=== PATIENT | female | born 1955 | race Caucasian/White ===

== ENCOUNTER 2023-02-01 09:50 | Outpatient (OUT) | payer MEDICARE, MEDICAID, SELFPAY ==
[2023-02-01 10:41] LABS: Creatinine Urine Random 58.68 mg/dL (20.00-300.00); Microalbum Creatinine Ratio Ur 22.1 mg/g (0.0-29.9); Microalbumin Urine Random <1.3 mg/dL (<=30.0)
[2023-02-01 10:43] LABS: Estimated Average Glucose 148 mg/dL; Glycohemoglobin A1C 6.8 % (4.5-6.2)
[2023-02-01 10:45] LABS: Alanine Aminotransferase 43 U/L (14-59); Alkaline Phosphatase 99 U/L (46-116); Anion Gap 13.4; Aspartate Amino Transferase 21 U/L (15-37); BUN Creatinine Ratio 8.9; Bilirubin Total 0.6 mg/dL (0.2-1.0); Calcium 8.9 mg/dL (8.5-10.1); Carbon Dioxide 29.5 mmol/L (21.0-32.0); Chloride 95 mmol/L (98-107); Chol HDL Ratio 3.3; Cholesterol 195 mg/dL (<=200); Estimated GFR (African America >60 (>=60); Estimated GFR (Non-African Ame >60 (>=60); Globulin 3.9 g/dL; Glucose 126 mg/dL (74-106); HDL Cholesterol 59 mg/dL (40-60); LDL Cholesterol Calculated 109.4 mg/dL; Potassium 3.9 mmol/L (3.5-5.1); Sodium 134 mmol/L (136-145); Total Protein 7.9 g/dL (6.4-8.2); Triglycerides 133 mg/dL (<=150); VLDL CHOLESTEROL 26.6 mg/dL
[2023-02-01 10:51] LABS: Basophils Absolute Auto 0.1 10^3/uL (0.0-0.1); Basophils Percent Auto 0.7 % (0.2-2.0); Eosinophils Absolute Auto 0.1 10^3/uL (0.0-0.7); Eosinophils Percent Auto 1.5 % (0.9-7.0); Hematocrit 44.7 % (36.0-48.0); Hemoglobin 15.4 g/dL (12.0-16.0); Immature Granulocytes Abs Auto 0.02 10^3/uL (0.00-0.03); Immature Granulocytes Pct Auto 0.3 % (0.0-0.5); Lymphocytes Absolute Auto 1.4 10^3/uL (1.2-3.8); Lymphocytes Percent Auto 19.6 % (20.5-60.0); Mean Corpuscular HGB Conc 34.5 g/dL (29.9-35.2); Mean Corpuscular Hemoglobin 31.9 pg (26.7-34.0); Mean Corpuscular Volume 92.5 fL (81.0-99.0); Monocytes Absolute Auto 0.8 10^3/uL (0.3-0.8); Monocytes Percent Auto 11.2 % (1.7-12.0); Neutrophils Absolute Auto 4.8 10^3/uL (1.4-6.5); Neutrophils Percent Auto 66.7 % (43.0-75.0); Platelet Count 385 10^3/uL (150-450); Red Blood Count 4.83 10^6/uL (4.20-5.40); Red Cell Distribution Width 12.1 % (11.0-15.0); White Blood Count 7.3 10^3/uL (4.0-11.0)
== END 2023-02-01 09:51 | disposition home or self-care (01) ==
LOC: LAB 09:54
PROVIDERS: PCP Nurse Practitioner Family; Visit Provider Nurse Practitioner Family
DX: E11.610 Type 2 diabetes mellitus with diabetic neuropathic arthropathy (principal); I10 Essential (primary) hypertension
CPT/HCPCS: 36415; 80053; 80061; 82043; 82570; 83036; 85025

== ENCOUNTER 2023-03-26 13:25 | Emergency (ER) | payer MEDICARE, MEDICAID, SELFPAY ==
[2023-03-26 13:33] VITALS: BP 148/89; PULSE 102; RESP 20; TEMP 36.7; O2SAT 98; BMI 29.0
--- NOTE | 2023-03-26 13:40 | XR_ITS ---
The [address] [address] Patient Name: IDALMIS HATHAWAY MRN: [id number] date: 1955 Sex: M Assigned Patient Location: ER Current Patient Location: ER Accession/Order Number: [id number] Exam Date: 03/26/2023 14:15 Report Date: 03/26/2023 14:45 At the request of: SHYANN HU Procedure: XR hip RT 2V w/ pelvis EXAM: XR hip RT 2V w/ pelvis HISTORY: right hip pain patient fell 2 or 3 days ago COMPARISON: None TECHNIQUE: Two-view right hip and AP view pelvis study was performed with 3 images obtained in total. FINDINGS: No definite acute fracture or dislocation. Mild to moderate degenerative changes about the right hip joint with mild changes about the left hip joint. Mild bilateral spurring of the iliac regions. Moderate degenerative changes about the visualized lumbar spine. Soft tissues are grossly within normal limits. XR/XR hip RT 2V w/ pelvis IMPRESSION: Right hip and AP view pelvis study demonstrates degenerative changes as described. No definite acute fracture or dislocation. Follow-up as needed. Electronically authenticated by: MARIPOSA YATES Date: 03/26/2023 14:45
--- NOTE | 2023-03-26 14:00 | ED.LOWEXI1 ---
HPI - Extremity Injury (Lower) General Chief Complaint: Extremity Injury, Lower Stated Complaint: HIP PAIN Time Seen by Provider: 03/26/23 13:40 Source: patient Mode of arrival: Wheelchair Limitations: no limitations History of Present Illness HPI Narrative: patient is a very pleasant 67-year-old male who drove himself to the emergency department for the evaluation of right posterior hip and leg pain that began two days ago. He states he has a history of issues with the right hip. He denies any falls, injuries. He has not had any leg swelling, color change to the lower leg. He has chronic neuropathy to the feet that is not worse or different. He denies any urinary or stool incontinence. No medications taken prior to arrival. he states the pain is concentrated in the right buttock/posterior hip and occasionally he gets a sharp pain down the back of the right leg. Pain is worse with ambulation. He is currently using a cane to help him walk. Related Data Home Medications Medication Instructions Recorded Confirmed amlodipine 5 mg tablet 5 mg PO DAILY 03/26/23 03/26/23 gabapentin 400 mg capsule 400 mg PO BID 03/26/23 03/26/23 glipizide 10 mg tablet 10 mg PO BID 03/26/23 03/26/23 lisinopril 30 mg tablet 30 mg PO DAILY 03/26/23 03/26/23 metformin 850 mg tablet 850 mg PO TID 03/26/23 03/26/23 Previous Rx's Medication Instructions Recorded hydrocodone 5 mg-acetaminophen 325 1 tab PO Q6H PRN pain 3 days #12 03/26/23 mg tablet tabs methocarbamol 750 mg tablet 750 mg PO TID PRN pain #20 tabs 03/26/23 naproxen sodium 550 mg tablet 550 mg PO BID PRN pain #10 tabs 03/26/23 Allergies Allergy/AdvReac Type Severity Reaction Status Date / Time Penicillins Allergy Hives Verified 03/26/23 13:31 Review of Systems ROS Constitutional Denies: fever or chills Eyes Denies: change in vision Ears, nose, mouth, and throat Denies: throat pain or neck pain Cardiovascular Denies: chest pain Respiratory Denies: shortness of breath or cough Gastrointestinal Denies: nausea or vomiting Genitourinary Denies: painful urination Musculoskeletal Reports: back pain, extremity pain and joint pain; Denies: neck pain Integumentary/Breast Denies: rash Neurological Denies: headache Endocrine Denies: excessive urination Hematologic/Lymphatic Denies: easy bruising Exam Narrative Exam Narrative: Gen.: Awake, alert, in no distress Head: Normocephalic, atraumatic ENT: Moist mucous membranes Respiratory: No respiratory distress, lungs clear bilaterally Cardio: Regular rate and rhythm Back: no bony tenderness of the T-spine or L-spine with diffuse tenderness of the right posterior hip, buttock. No rotation or shortening of the right lower extremity. 2+ DP pulses bilaterally. Normal dorsiflexion and plantarflexion of the extremities with no decrease in sensation to the medial thighs Extremities: pain with hip flexion at the right hip, normal flexion and extension of the right knee noted. Psych: Normal mood and affect Neuro: No focal neuro deficit Skin: Warm, dry, intact Constitutional Vital Signs, click to edit/add: Last Vital Signs Temp 98.1 F 03/26/23 13:33 Pulse 102 H 03/26/23 13:33 Resp 20 03/26/23 13:33 BP 148/89 H 03/26/23 13:33 Pulse Ox 98 03/26/23 13:33 O2 Del Method Room Air 03/26/23 13:33 Course Vital Signs Vital signs: Vital Signs Temperature 98.1 F 03/26/23 13:33 Pulse Rate 102 H 03/26/23 13:33 Respiratory Rate 20 03/26/23 13:33 Blood Pressure 148/89 H 03/26/23 13:33 Pulse Oximetry 98 03/26/23 13:33 Oxygen Delivery Method Room Air 03/26/23 13:33 Temperature 98.1 F 03/26/23 13:33 Pulse Rate 102 H 03/26/23 13:33 Respiratory Rate 20 03/26/23 13:33 Blood Pressure 148/89 H 03/26/23 13:33 Pulse Oximetry 98 03/26/23 13:33 Oxygen Delivery Method Room Air 03/26/23 13:33 MDM - Extremity Injury (Lower) MDM Narrative Medical decision making narrative: exam is consistent with right-sided sciatica and right hip pain. Patient placed on a short course of analgesics, NSAIDs and muscle relaxants. Follow-up with PCP and return to the Emergency Room if symptoms change or worsen. Started on Solu-Medrol intramuscular in the Emergency Room. We will avoid additional steroids due to the history of diabetes. Rest, ice, gentle stretching. Medical Records Attestation: I reviewed the patient's medical records. Imaging Data XR hip: Attestation: I have reviewed the pertinent imaging results. Radiologist's impression: Procedure: XR hip RT 2V w/ pelvis EXAM: XR hip RT 2V w/ pelvis HISTORY: right hip pain patient fell 2 or 3 days ago COMPARISON: None TECHNIQUE: Two-view right hip and AP view pelvis study was performed with 3 images obtained in total. FINDINGS: No definite acute fracture or dislocation. Mild to moderate degenerative changes about the right hip joint with mild changes about the left hip joint. Mild bilateral spurring of the iliac regions. Moderate degenerative changes about the visualized lumbar spine. Soft tissues are grossly within normal limits. IMPRESSION: Right hip and AP view pelvis study demonstrates degenerative changes as described. No definite acute fracture or dislocation. Follow-up as needed. Electronically authenticated by: MARIPOSA YATES Date: 03/26/2023 14:45 Discharge Plan Discharge Chief Complaint: Extremity Injury, Lower Clinical Impression: Right sided sciatica, Acute pain of right hip Patient Disposition: Home, Self-Care Time of Disposition Decision: 14:57 Condition: Good Prescriptions / Home Meds: New hydrocodone-acetaminophen 5-325 mg tablet 1 tab PO Q6H PRN (Reason: pain) 3 Days Qty: 12 0RF Rx Instructions: DX: M25.551 methocarbamol 750 mg tablet 750 mg PO TID PRN (Reason: pain) Qty: 20 0RF naproxen sodium 550 mg tablet 550 mg PO BID PRN (Reason: pain) Qty: 10 0RF No Action amlodipine 5 mg tablet 5 mg PO DAILY gabapentin 400 mg capsule 400 mg PO BID glipizide 10 mg tablet 10 mg PO BID lisinopril 30 mg tablet 30 mg PO DAILY metformin 850 mg tablet 850 mg PO TID Instructions: Sciatica (ED), Hip Pain (ED) Stand Alone Forms: Portal Instructions Referrals: SIMON COOPER [Primary Care Provider] - 1 week
[2023-03-26] MEDS: METHYLPREDNISOLONE SOD SUCC PF 125 MG/2 ML VIAL IM (14:05)
== END 2023-03-26 15:18 | disposition home or self-care (01) ==
PROVIDERS: Emergency Provider Emergency Medicine Emergency Medical Services; PCP Nurse Practitioner Family
DX: M25.551 Pain in right hip (principal); M54.31 Sciatica, right side; Z79.899 Other long term (current) drug therapy; Z79.84 Long term (current) use of oral hypoglycemic drugs
CPT/HCPCS: 73502; 96372; 99284; J2930

== ENCOUNTER 2023-04-23 11:03 | Outpatient (OUT) | payer MEDICARE, MEDICAID, SELFPAY ==
--- NOTE | 2023-04-23 13:00 | P.CN_ITS ---
Consult Note: HPI Data of Consult Patient: new to practice Consult date: 04/23/23 Requesting Physician: Dickson Magallanes MD Primary Care Provider: SIMON COOPER Consult Narrative Reason for consult: Low back, right leg pain Narrative: 67yom who presents for evaluation. Longstanding history of low back pain with radiation into right lower extremity. Recently had lumbar XR, which shows multilevel degeneration and facet arthropathy. He has recently completed a >6 week course of provider directed home exercises, with minimal benefit. Has tried gabapentin, robaxin, naproxen, tylenol, which provides some relief. Denies adverse med side effects. cc:: CC: Dickson Magallanes MD Review of Systems ROS Status of ROS 10 or more systems reviewed and unremark able except as noted in history and below Meds Home Medications and Allergies Home Medications Medication Instructions Recorded Confirmed Type amlodipine 5 mg tablet 5 mg PO DAILY 03/26/23 03/26/23 History gabapentin 400 mg capsule 400 mg PO BID 03/26/23 03/26/23 History glipizide 10 mg tablet 10 mg PO BID 03/26/23 03/26/23 History hydrocodone 5 mg-acetaminophen 325 1 tab PO Q6H PRN pain 3 days #12 03/26/23 Rx mg tablet tabs lisinopril 30 mg tablet 30 mg PO DAILY 03/26/23 03/26/23 History metformin 850 mg tablet 850 mg PO TID 03/26/23 03/26/23 History methocarbamol 750 mg tablet 750 mg PO TID PRN pain #20 tabs 03/26/23 Rx naproxen sodium 550 mg tablet 550 mg PO BID PRN pain #10 tabs 03/26/23 Rx Allergies Allergy/AdvReac Type Severity Reaction Status Date / Time Penicillins Allergy Hives Verified 03/26/23 13:31 Exam Narrative Exam Narrative: Psych-alert and oriented x 3. Attentive and appropriate, constitutionally normal, displays normal mood and affect per situation. There are no obvious deficits in memory, reasoning, or intellect.? Skin-no obvious rashes, bruising, erythema noted to the patient's area of pain.? Extremities- extremities are warm with minimal edema and palpable pulses. Lumbar-tenderness to palpation noted in the lumbar spine and paraspinal musculature. Pain is elicited with flexion, extension, and lateral rotation of the lumbar spine. Range of motion is diminished with these motions. Facet loading maneuvers are positive.? Strength-noted to be unremarkable with the exception of decreased strength rated at 4 out of 5 in right quadriceps femoris, anterior tibialis. Sensory-no notable sensory deficits in the bilateral lower extremities to touch or pinprick in all dermatomal distributions with the exception to decreased sensation to the right L4, 5, S1 dermatomal distribution Coordination remains intact.? Gait remains non-antalgic. Assessment and Plan Assessment and Plan (1) Lumbar stenosis with neurogenic claudication: (2) Lumbar spondylosis: Plan 67yom who presents for evaluation. Failed conservative measures, as noted. Imaging reviewed, as noted. Given symptoms and failure to respond to >6 weeks of conservative measures, prudent to obtain advanced imaging. Will order lumbar MRI without contrast. He is in agreement. Medications reviewed, will trial celebrex 200mg bid prn. Follow up after imaging.
== END 2023-04-23 11:04 | disposition home or self-care (01) ==
PROVIDERS: PCP Nurse Practitioner Family; Visit Provider Anesthesiology
DX: M48.062 Spinal stenosis, lumbar region with neurogenic claudication (principal); M47.816 Spondylosis without myelopathy or radiculopathy, lumbar region
CPT/HCPCS: G0463

== ENCOUNTER 2023-04-30 10:17 | Outpatient (OUT) | payer MEDICARE, MEDICAID, SELFPAY ==
--- OUTSIDE RECORDS SUMMARY | 2023-04-30 10:20 | XMS_ITS | CCD ---
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 Griffin Referring Unavaila ble Traboulssi, Dr. Griffin Attending Unavaila ble UNKNOWN, Dr. PCP Primary Care Unavailable Traboulssi, Dr. Griffin Referring Unavaila ble Traboulssi, Dr. Griffin Attending Unavaila ble UNKNOWN, PCP Primary Care Unavailable Roderickoulsstang, Dr. Griffin Attending Unavaila ble UNKNOWN, PCP Primary Care Unavailable Magaly Jefferson Unavailable Elpidio CUEVAS, Dickson Roque Attending Unavailable Allergies Allergy Classification Reported Allergen(s) Allergy Type Date of Onset Reaction(s) Facility (2 sources) Penicillins; Translations: [Penicillins] Allergy to drug (finding) Unknown -[facility] DO Work Phone: (6 sources) Penicillin G Drug Allergy tachycardia [facility] [employer] Other Medications Current Medications Medication Drug Class(es) Dates Sig (Normalized) Sig (Original) amLODIPine 5 mg oral tablet (6 sources) Dihydropyridine Calcium Channel Gonzalez Start: 02-01-20 23 take 1 tablet by mouth every twenty-four hours amLODIPine Besylate 5 MG 1 tablet Orally Once a day for 90 days Jan, Active FreeStyle Roland 14 Day [place] - (4 sources) Start: 04-02-19 24 FreeStyle Roland 14 Day [place] - as directed SQ As Directed for 30 days Mar, Active Freestyle Roland 14 day sensor (4 sources) Start: 04-02-19 Freestyle Roland 14 day sensor 1 SQ As Directed for 30 days Mar, Active methocarbamol 750 mg oral tablet (5 sources) Muscle Relaxant Methocarbamol 75 0 MG Oral for 6 Days Active methylPREDNISolone 4 mg oral tablet (5 sources) Corticosteroid Start: 03-29-19 methylPREDNISolone 4 MG as directed Orally daily for 6 days Mar, Active naproxen 500 mg oral tablet (5 sources) Nonsteroidal Anti-inflammatory Drug take 1 tablet by mouth every twelve hours at mealtime as needed Naproxen 500 MG 1 tablet with food or milk as needed Orally every 12 hrs Active OneTouch Verio - (6 sources) OneTouch Verio - In Vitro for 66 Days Active Completed/Discontinued Medications Medication Drug Class(es) Dates Sig (Normalized) Sig (Original) aspirin 81 mg delayed release oral tablet (2 sources) Platelet Aggregation Inhibitor, Nonsteroidal Anti-inflammatory Drug take 1 tablet by mouth once daily Aspirin 81 MG Oral Tablet Delayed Release TAKE 1 TABLET DAILY. Quantity: 90 Refills: 3 Ordered: 22-Mar-2022 Marshall CUEVAS, Cameron Active gabapentin 400 mg oral capsule (10 sources) Anti-epileptic Agent Start: 01-24-2022 take 1 capsule by mouth once daily at bedtime Gabapentin 400 MG Oral Capsule TAKE 1 CAPSULE BY MOUTH ONCE DAILY AT BEDTIME Quantity: 30 Refills: 0 Ordered: 21-Feb-2022 DO Start : 24-Jan-2022 Active Start: 07-18-2021 Gabapentin 300 MG Oral Capsule TAKE 1 CAPSULE BY MOUTH IN THE MORNING AND 1 AT LUNCHTIME Quantity: 60 Refills: 0 Ordered: 16-Nov-2021 DO Start : 18-Jul-2021 Active take 1 capsule by mo [facility] every twelve hours Gabapentin 400 MG 1 capsule Orally Twice a day for 90 days Active glipiZIDE 10 mg oral tablet (8 sources) Sulfonylurea Start: 12-19-2021 take 1 tablet by mouth twice daily before mealtime glipiZIDE 10 MG Oral Tablet TAKE 1 TABLET BY MOUTH TWICE DAILY BEFORE MEAL(S) Quantity: 180 Refills: 0 Ordered: 19-Dec-2021 DO Start : 19-Dec-2021 Active lisinopril 30 mg oral tablet (8 sources) Angiotensin Converting Enzyme Inhibitor Start: 12-19-2021 take 1 tablet by mouth once daily Lisinopril 30 MG Oral Tablet TAKE 1 TABLET BY MOUTH ONCE DAILY Quantity: 90 Refills: 0 Ordered: 19-Dec-2021 DO Start : 19-Dec-2021 Active metFORMIN hydrochloride 850 mg oral tablet (8 sources) Biguanide Start: 12-19-2021 take 1 tablet by mouth three times daily at dinner metFORMIN HCl - 850 MG Oral Tablet TAKE 1 TABLET BY MOUTH THREE TIMES DAILY WITH MORNING MEAL AND WITH EVENING MEAL Quantity: 270 Refills: 0 Ordered: 19-Dec-2021 DO Start : 19-Dec-2021 Active SITagliptin 25 mg oral tablet (2 sources) Dipeptidyl Peptidase 4 Inhibitor Start: 02-01-2022 take 1 tablet by mouth once daily Januvia 25 MG Oral Tablet TAKE 1 TABLET BY MOUTH ONCE DAILY Quantity: 30 Refills: 0 Ordered: 24-Feb-2022 DO Start : 01-Feb-2022 Active Problems Problem Classification Problem Date Documented Date Episodic/Chronic Diabetes mellitus with complications (7 sources) 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; Translations: [Type 2 diabetes mellitus with diabetic neuropathic arthropathy] Chronic Diabetes mellitus without complication (12 sources) Type 2 diabetes mellitus without complications; Translations: [Diabetes mellitus] Onset: 01-14-2021 Chronic Essential hypertension (16 sources) Essential (primary) hypertension; Translations: [Benign essential hypertension] Onset: 04-19-2020 Chronic Heart valve disorders (3 sources) Heart murmur; Translations: [Undiagnosed cardiac murmurs] Onset: 03-27-2022 Episodic Osteoarthritis (7 sources) Arthritis of right hip; Translations: [Unilateral primary osteoarthritis, right hip] Chronic Other connective tissue disease (6 sources) Neuropathic pain; Translations: [Neuralgia and neuritis, unspecified] Episodic Other nervous system disorders (6 sources) Neuropathy; Translations: [Polyneuropathy, unspecified] Chronic Other nutritional; endocrine; and metabolic disorders (2 sources) Obesity; Translations: [Obesity, unspecified] Chronic Other screening for suspected conditions (not mental disorders or infectious disease) (2 sources) Electrocardiogram abnormal; Translations: [Nonspecific abnormal electrocardiogram [ECG] [EKG]] Episodic Screening and history of mental health and substance abuse codes (2 sources) Ex-smoker; Translations: [Personal history of tobacco use] Episodic Spondylosis; intervertebral disc disorders; other back problems (7 sources) Degeneration of lumbar intervertebral disc; Translations: [Other intervertebral disc degeneration, lumbar region] Chronic Spondylosis; intervertebral disc disorders; other back problems (7 sources) Sciatica; Translations: [Sciatica, right side] Episodic Results Test Name Value Interpretation Reference Range Facility Historical Records Officeon 06-09-2022 Historical Records Office [id number]# [id number] Normal [facility] Echocardiogramon 03-27-[address], [address] [place] [address] TRANSTHORACIC ECHOCARDIOGRAM REPORT Patient Name: IDALMIS Mcmahon Physician: [id number] Cameron Olivares MD Study Date: 03/27/2022 Referring Physician: CAMERON OLIVARES MRN/PID: [id number] PCP: Accession/Order#: [id number] Department Location: [facility] Date of : 1955 Fellow: Gender: M Nurse: Admit Date: [employer]cher [employer]: Winifred Suresh RD, [facility] Height: 170.18 cm CC Report to: Weight: 88.45 kg Study Type: Echocardiogram BSA: 2.00 m2 Blood Pressure: 144 /80 mmHg Diagnosis/ICD: N01-Nlazjbldu (primary) hypertension; R01.1-Cardiac murmur, unspecified Indication: Abnormal EKG, Diabetes, Former Smoker, Obesity Procedure/CPT: Echo Complete w Full [id number] Study Detail: The following Echo studies were performed: 2D, M-Mode, Doppler and color flow. PHYSICIAN INTERPRETATION: Left Ventricle: Left ventricular systolic function is normal, with an estimated ejection fraction of 65%. There are no regional wall motion abnormalities. The left ventricular cavity size is normal. Spectral Doppler shows an impaired relaxation pattern of left ventricular diastolic filling. Left Atrium: The left atrium is normal in size. Right Ventricle: The right ventricle is normal in size. There is normal right ventricular global systolic function. Right Atrium: The right atrium is normal in size. Aortic Valve: The aortic valve appears structurally normal. There is no evidence of aortic valve regurgitation. The peak instantaneous gradient of the aortic valve is 13.8 mmHg. The mean gradient of the aortic valve is 7.0 mmHg. Mitral Valve: The mitral valve is normal in structure. There is trace to mild mitral valve regurgitation. Mild mitral regurgitation. Tricuspid Valve: The tricuspid valve is structurally normal. No evidence of tricuspid regurgitation. Pulmonic Valve: The pulmonic valve is structurally normal. There is no indication of pulmonic valve regurgitation. Pericardium: There is no pericardial effusion noted. Aorta: The aortic root is normal. CONCLUSIONS: 1. Left ventricular systolic function is normal with a 65% estimated ejection fraction. 2. Spectral Doppler shows an impaired relaxation pattern of left ventricular diastolic filling. 3. Mild mitral regurgitation. 4. No previous study available for comparison. QUANTITATIVE DATA SUMMARY: 2D MEASUREMENTS: Normal Ranges: Ao Root d: 2.40 cm (2.0-3.7cm) LAs: 3.10 cm (2.7-4.0cm) RVIDd: 3.20 cm (0.9-3.6cm) IVSd: 0.90 cm (0.6-1.1cm) LVPWd: 0.90 cm (0.6-1.1cm) LVIDd: 4.50 cm (3.9-5.9cm) LVIDs: 2.30 cm LV Mass Index: 66.4 g/m2 LV % FS 48.9 % LV SYSTOLIC FUNCTION BY 2D PLANIMETRY (MOD): Normal Ranges: EF-A4C View: 69.8 % (>=55%) LV DIASTOLIC FUNCTION: Normal Ranges: MV Peak E: 0.58 m/s (0.7-1.2 m/s) MV Peak A: 0.87 m/s (0.42-0.7 m/s) E/A Ratio: 0.67 (1.0-2.2) MV lateral e' 0.09 m/s MV medial e' 0.09 m/s E/e' Ratio: 6.60 (<8.0) MITRAL VALVE: Normal Ranges: MV Vmax: 1.24 m/s (<=1.3m/s) MV peak P.2 mmHg (<5mmHg) MV mean P.0 mmHg (<48mmHg) AORTIC VALVE: Normal Ranges: AoV Vmax: 1.86 m/s (<=1.7m/s) AoV Peak P.8 mmHg (<20mmHg) AoV Mean P.0 mmHg (1.7-11.5mmHg) LVOT Max Mitchel: 0.96 m/s (<=1.1m/s) AoV VTI: 31.60 cm (18-25cm) LVOT VTI: 18.00 cm LVOT Diameter: 2.40 cm (1.8-2.4cm) AoV Area, VTI: 2.58 cm2 (2.5-5.5cm2) AoV Area,Vmax: 2.34 cm2 (2.5-4.5cm2) AoV Dimensionless Index: 0.57 PULMONIC VALVE: Normal Ranges: PV Max Mitchel: 1.0 m/s (0.6-0.9m/s) PV Max P.2 mmHg PIEDV: 2.28 m/s PADP: 23.8 mmHg [id number] Cameron Olivares MD Electronically signed on 03/27/2022 at 2:04:12 PM Final Normal [facility] Tobacco Screening.on 023 Adult depression screening assessment No [facility] 250 DO Work Phone: Fall risk assessment c) Not medically indicated [facility] with [facility] 250 DO Work Phone: Tobacco use status [facility] b) No Merg[facility] with [facility] 250 DO Work Phone: GLYCOHEMOGLOBIN A1Con 2020 ADA RECOMMENDATION ADA THERAPEUTIC TARGET 6.0 - 7.0 ACTION SUGGESTED > 7.0 Normal [facility] Comment on above: Performed By: #### A 1C #### [facility] [address] [address] [address] Fanta Evans Glucose [Mass/Vol] 134 mg/dL Normal [facility] Comment on above: Performed By: #### A 1C #### [facility] [address] [address] [address] Fanta Evans HbA1c (Bld) [Mass fraction] 6.3 % Critically high <=6.0 [facility] Comment on above: Performed By: #### A 1C #### [facility] [address] [address] [address] Fanta Evans GLYCOHEMOGLOBIN A1Con 2020 ADA RECOMMENDATION ADA THERAPEUTIC TARGET 6.0 - 7.0 ACTION SUGGESTED > 7.0 Normal [facility] Comment on above: Performed By: #### A 1C #### [facility] [address] [address] Sandra Cara Glucose [Mass/Vol] 148 mg/dL Normal [facility] Comment on above: Performed By: #### A 1C #### [facility] [address] [address] Sandra Marroquin HbA1c (Bld) [Mass fraction] 6.8 % Critically high <=6.0 [facility] Comment on above: Performed By: #### A 1C #### [facility] [address] [address] Sandra Marroquin GLYCOHEMOGLOBIN A1Con 2020 Glucose [Mass/Vol] 140 mg/dL Normal [facility] Comment on above: Performed By: #### A 1C #### [facility] [address] [address] Sandra Santillanen HbA1c (Bld) [Mass fraction] 6.5 % Critically high <=6.0 [facility] Comment on above: Performed By: #### A 1C #### [facility] [address] [address] Sandra Marroquin LIPID PROFILEon 03-23-2020 CHOL-HDL RATIO NORM SEE BELOW Normal [facility] Comment on above: Result Comment: 3.3 - 4.4 LOW RISK 4.4 - 7.1 AVERAGE RISK 7.1 - 11.0 MODERATE RISK >11.0 HIGH RISK Performed By: #### L IPID #### [facility] [address] [place], [place] [address] Sandra Cara Cholesterol [Mass/Vol] 183 mg/dL Normal <=200 [facility] Comment on above: Performed By: #### L IPID #### [facility] [address] [place], [place] [address] Sandra Cara Cholesterol in HDL [Mass/Vol] 54 mg/dL Normal [facility] Comment on above: Performed By: #### L IPID #### [facility] [address] [place], [place] [address] Sandra Cara Cholesterol in LDL [Mass/Vol] 116.0 mg/dL Normal [facility] Comment on above: Performed By: #### L IPID #### [facility] [address] [place], [place] [address] Sandra Cara Cholesterol.total/Chol esterol in HDL [Mass ratio] 3.4 {ratio} Normal [facility] Comment on above: Performed By: #### L IPID #### [facility] [address] [place], [place] [address] Sandra Cara HDL NORMAL > or = 60 mg/dl - LOW CARDIOVASCULAR RISK <40 mg/dl - HIGH CARDIOVASCULAR RISK Normal [facility] Comment on above: Performed By: #### L IPID #### [facility] [address] [place], [place] [address] Sandra Cara LDL CALC NORMAL SEE BELOW Normal [facility] Comment on above: Result Comment: <100 mg/dl OPTIMAL 100 - 129 mg/dl NEAR OR ABOVE OPTIMAL 130 - 159 mg/dl BORDERLINE HIGH 160 - 189 mg/dl HIGH >190 mg/dl VERY HIGH Performed By: #### L IPID #### [facility] [address] [place], [place] [address] Sandra Cara Triglyceride [Mass/Vol] 65 mg/dL Normal <=150 [facility] Comment on above: Performed By: #### L IPID #### [facility] [address] [place], [place] [address] Sandra Cara VLDL CALC 13.0 mg/dL Normal [facility] Comment on above: Performed By: #### L IPID #### [facility] [address] [place], [place] [address] Sandra Marroquin Vital Signs Date Time Vital Sign Value Performing Clinician Facility 03-29-2023 11:30-0500 Body height 172.72 cm Magaly Jefferson Other [facility] Other 03-29-2023 11:30-0500 Body mass index (BMI) [Ratio] 27.52 kg/m2 Magaly Jefferson Other [facility] Other 03-29-2023 11:30-0500 Body weight 82.1 kg Magaly Jefferson Other [facility] Other 03-29-2023 11:30-0500 Diastolic blood pressure 80 mm[Hg] Magaly Jefferson Other [facility] Other 03-29-2023 11:30-0500 SaO2% (BldA) [Mass fraction] 98 % Magaly Jefferson Other [facility] Other 03-29-2023 11:30-0500 Systolic blood pressure 136 mm[Hg] Magaly Jefferson Other [facility] Other 03-27-2022 15:28-0500 65 1 Referring Provider Unknown [facility] 250 DO Work Phone: Comment on above: [id number] 03-22-2022 15:39-0500 Diastolic blood pressure 82 mm[Hg] Referring Provider Unknown [facility] with [facility] 250 DO Work Phone: 03-22-2022 15:39-0500 Systolic blood pressure 137 mm[Hg] Referring Provider Unknown [facility] with [facility] 250 DO Work Phone: 03-22-2022 15:10-0500 Diastolic blood pressure 86 mm[Hg] Referring Provider Unknown [facility] 250 DO Work Phone: 03-22-2022 15:10-0500 Systolic blood pressure 158 mm[Hg] Referring Provider Unknown [facility] 250 DO Work Phone: 03-22-2022 15:09-0500 Body height 171.45 cm Referring Provider Unknown [facility] 250 DO Work Phone: 03-22-2022 15:09-0500 Body mass index (BMI) [Ratio] 30.09 kg/m2 Referring Provider Unknown [facility] 250 DO Work Phone: 03-22-2022 15:09-0500 Body surface area Derived from formula 2.01 m2 Referring Provider Unknown [facility] 250 DO Work Phone: 03-22-2022 15:09-0500 Body weight 88.45 kg Referring Provider Unknown [facility] 250 DO Work Phone: 03-22-2022 15:09-0500 Diastolic blood pressure 88 mm[Hg] Referring Provider Unknown [facility] 250 DO Work Phone: 03-22-2022 15:09-0500 Heart rate 92 /min Referring Provider Unknown [facility] 250 DO Work Phone: 03-22-2022 15:09-0500 Systolic blood pressure 160 mm[Hg] Referring Provider Unknown [facility] 250 DO Work Phone: Encounters Encounter Date Encounter Type Care Provider Facility Start: 04-23-2023 End: 04-24-2023 ambulatory Dickson Magallanes MD Facility: [facility] Start: 04-11-2023 End: 04-11-2023 ambulatory Magaly Jefferson Other [facility] Other Start: 04-11-2023 Telephone encounter Magaly Breen her [facility] Start: 04-05-2023 End: 04-05-2023 ambulatory Magaly Jefferson Other [facility] Other Start: 04-05-2023 Telephone encounter Magaly Breen her [facility] Start: 03-30-2023 End: 03-30-2023 ambulatory Magaly Jefferson Other [facility] Other Start: 03-30-2023 Telephone encounter Magaly Breen her [facility] Start: 03-29-2023 End: 03-29-2023 ambulatory Magaly Jefferson Other [facility] Other Start: 03-29-2023 Office outpatient visit 25 minutes Magaly Jefferson [facility] Start: 02-02-2023 End: 02-02-2023 ambulatory Magaly Jefferson Other [facility] Other Start: 02-02-2023 Telephone encounter Magaly Breen her [facility] Start: 09-28-[address] Cameron Olivares Facility: Start: 06-08-2022 ambulatory Facility:[facility] Start: 03-27-2022 Chart Update Referring Prov ider Unknown [facility] 250 DO Work Phone: Start: 03-27-[address] Cameron Olivares Facility:[id number] Start: 03-22-2022 Patient encounter procedure Referring Provider Unknown [facility] 250 DO Work Phone: Start: 03-22-[address] Cameron Olivares Facility: Start: 02-23-[address] Cameron Olivares Facility:[facility] Start: 01-14-2021 End: 01-15-2021 ambulatory SKYE TAYLOR Facility:[facility] Start: 09-27-2020 End: 09-28-[address] DOCTOR TUCKER Facility:[facility] Start: 03-23-2020 End: 03-24-[address] KAYLA DAMON Facility:[facility] Procedures Date Procedure Procedure Detail Performing Clinician Start: 03-27-2022 Echocardiography Referr ing Provider Unknown Appendectomy Referring Provi negrito Unknown Finger operation Referring P rovider Unknown Surgical procedure o n eye proper Referring Provider Unknown NEGATED: Highlighted row has not occurred! Total colonoscopy Referring Provider Unknown Plan of Treatment Date Care Activity Detail Author Start: 08-10-2022 FUV, Provider: Cameron Olivares, Status: Pen, Time: 2:00 PM FUV, Provider: Cameron Olivares, Status: Pen, Time: 2:00 PM [facility] 250 DO Work Phone: Start: 03-27-2022 ECHO, Provider: AMERICA QUIROZ [facility] 01,[id number], Status: Pen, Time: 8:45 AM ECHO, Provider: MEDHAT [facility] 01,[id number], Status: Pen, Time: 8:45 AM [facility] 250 DO Work Phone: Immunizations Immunization Date Immunization Notes Care Provider Yina cooper 01-31-2023 influenza, high dose seasonal, preservative-free Magaly Jefferson Other [facility] Other 01-24-2022 influenza, injectabl e, quadrivalent, preservative free Referring Provider Unknown [facility] 250 DO Work Phone: 01-24-2022 Pfizer COVID-19 Vac Bivalent 30 MCG/0.3ML Intramuscular Suspension Referring Provider Unknown [facility] 250 DO Work Phone: 08-23-2021 Moderna COVID-19 Vaccine 100 MCG/0.5ML Intramuscular Suspension Referring Provider Unknown [facility] 250 DO Work Phone: 02-01-2021 Moderna COVID-19 Vaccine 100 MCG/0.5ML Intramuscular Suspension Referring Provider Unknown [facility] 250 DO Work Phone: 01-17-2021 influenza, injectabl e, quadrivalent, preservative free Referring Provider Unknown [facility] 250 DO Work Phone: 06-26-2020 Moderna COVID-19 Vaccine 100 MCG/0.5ML Intramuscular Suspension Referring Provider Unknown [facility] 250 DO Work Phone: 05-29-2020 Moderna COVID-19 Vaccine 100 MCG/0.5ML Intramuscular Suspension Referring Provider Unknown [facility] 250 DO Work Phone: 03-30-2020 influenza, injectabl e, quadrivalent, preservative free Referring Provider Unknown [facility] 250 DO Work Phone: 04-01-2019 influenza, injectabl e, quadrivalent, contains preservative Referring Provider Unknown [facility] 250 DO Work Phone: Payers Date Payer Category Payer Medicaid 2023 Unknown 1957 Self-pay [id number] 1955 Unknown [id number] 2.16.84 [id number] 1955 Unknown [id number] 2.16.84 [id number] 1955 Unknown [id number] 2.16.84 [id number] 1955 Unknown [id number] 2.16.8 [id number] 1955 Unknown [id number] 2.16. [id number] 1955 Unknown [id number] 2.16. [id number] 1955 Unknown [id number] 2.16. [id number] Medicaid [id number] Medicare [id number] 2.1 [id number] Social History Date Type Detail Facility Occasional alcohol use Occasional alcohol use -[facility] Frank DO Work Phone: Sex Assigned At Sex Assigned At Bir th [facility] Other Medical Equipment Procedure Code Equipment Code Equipment Original Text Equi pment Identifier Dates OneTouch Delica Plus [id number] - Evaluation note 04-05-2023 Note Date & Type Note Facility 04-05-2023 Evaluation note Encounter Date Diagnosis Assessment Notes Mar, Arthritis of right hip (ICD-10 - M16.11) Mar, Sciatica of right side (ICD-10 - M54.31) Mar, Degeneration of intervertebral disc of lumbar region (ICD-10 - M51.36) [facility] Other Evaluation note 03-30-2023 Note Date & Type Note Facility 03-30-2023 Evaluation note Encounter Date Diagnosis Assessment Notes Mar, Type 2 diabetes mellitus with diabetic neuropathic arthropathy, without long-term current use of insulin (ICD-10 - E11.610) [facility] Other Evaluation note 03-29-2023 Note Date & Type Note Facility 03-29-2023 Evaluation note Encounter Date Diagnosis Assessment Notes Mar, Sciatica of right side (ICD-10 - M54.31) Discussed sciatica in detail today. Discussed shoot pain down back of leg, radiating from buttocks possibly down to knee Discussed emergent symptoms, weakness, loss of bowel/bladder control and when to F/U in office or report to ER. Discussed sciatic pain stretches as well as application of heat in morning and ice at night. Rx sent, take as directed. Take medication as prescribed. Complete all doses of medication, even if sx are no longer present. Pt instructed to take medication with food. Informed pt that medication may make pt feel jittery, hungry and give you extra energy. Medication may also increase blood pressure and increase blood sugar. Pt also advised not to take NSAIDs while using steroids.Recomm ended ice/warm compresses to affected area as directed. Rest. Stretches as tolerated. Advance activity as tolerated. IDiscussed Holding NSAID while on steroid and muscle relaxer use. Will refer to PT f no better. Pt verbalizes understanding and agrees to plan of care. Mar, Degeneration of intervertebral disc of lumbar region (ICD-10 - M51.36) Mar, Arthritis of right hip (ICD-10 - M16.11) [employer] Other Evaluation note Note Date & Type Note Facility Evaluation note No Information [facility] Other History general Narrative - Reported Note Date & Type Note Facility History general Narrative - Reported Type Medical History DM (diabetes mellitus) Medical History Neuropathic pain Medical History HTN (hypertension) Surgical History appendectomy Surgical History eyes Surgical History hand surgery [employer] Other History of Present illness Narrative Note Date & Type Note Facility History of Present illness Narrative Patient is here for cardiovascular evaluation for hypertension. Patient is 66-year-old who described previous history of cardiac murmur but no other cardiac history. He reports his blood pressure has been reasonably controlled till recently. During recent office visit he was noted to be elevated. He had been on lisinopril 30 mg daily. Patient reports he is very active. He described functional class I. He denies any complaint of chest pain, palpitation, lightheadedness, dizziness or syncope. Patient initial blood pressure was elevated but within 10 minutes of rest his blood pressure seem to normalize. A component of whitecoat hypertension is suspected. The patient EKG is noted to be slightly abnormal with poor R wave progression anterior leads but patient described functional class I.Assessment1. Hypertension with component of whitecoat hypertension appears to be controlled2. Cardiac murmur probably mitral regurgitation3. Diabetes mellitus4. Abnormal EKG poor R wave progression anterior leads likely due to hypertensive heart disease5. Mildly overweight6. Reformed smokerPlan1. I discussed with the patient nonpharmacologic management for hypertension including salt restriction, exercise and weight loss with following the DASH diet2. I advised him to continue to monitor his blood pressure at home and notify me if it is above 1303. Continue current medication4. We will obtain an echocardiogram to assess his LV systolic function5. If blood pressure is elevated in the future we will consider adding diuretics6. Follow-up in 6-month Merged with [facility] 250 DO Work Phone: Summary Purpose Family History No Family History Records FoundUnknown Family Member Name Dates Details Family history of diabetes m ellitus: Mother, Father(V18.0, Z83.3) Status:Active Family history of cardiac di sorder: Mother(V17.49, Z82.49) Status:Active Hypertension, benign: Mother Status:Active Unknown Family Member Name Dates Details Family history of diabetes m ellitus: Mother, Father(V18.0, Z83.3) Status:Active Family history of cardiac di sorder: Mother(V17.49, Z82.49) Status:Active Hypertension, benign: Mother Status:Active Advance Directives No Advanced Directives Records FoundNo Advanced Directives Records FoundNo Advanced Directives Records FoundNo Advanced Directives Records FoundNo Advanced Directives Records Found Chief Complaint IDALMIS SHARP is being seen for Brandon- HTN. Reason for Referral Reason evaluate Diagnosis 1 Arthritis of right h ip (M16.11) Diagnosis 2 Sciatica of right si de (M54.31) Diagnosis 3 Degeneration of inte rvertebral disc of lumbar region (M51.36) Referral Organization [facility] Referring Provider First Name Magaly Referring Provider Last Name Ronny Referring Provider Specialty Nurse Pract katherin Referred Organization [facility] Referred Address [address], [place],[address] Referred Provider Specialty Pain Medicin e Referral Priority Routine Additional Source Comments INFORMATION SOURCE (unrecogn ized section and content) DATE CREATED AUTHOR 01/22/2021 [facility] DATE CREATED AUTHOR AUTHOR'S ORGANIZ ATION 03/29/2022 [facility] DATE CREATED AUTHOR AUTHOR'S ORGANIZ ATION 06/10/2022 [facility] DATE CREATED AUTHOR AUTHOR'S ORGANIZ ATION 09/29/2022 [facility] DATE CREATED AUTHOR AUTHOR'S ORGANIZ ATION 04/26/2023 [facility] (unrecognized sect ion and content) No Status Records FoundNo Status Records FoundNo Status Records FoundNo Status Records Found REASON FOR VISIT (unrecogniz ed section and content) lab resultsER Follow upCGMLi jeffery Jacobson painMedication FOR RECORDS PERTAINING TO PATIENTS WHO ARE OR HAVE BEEN ENROLLED IN A CHEMICAL DEPENDENCY/SUBSTANCEABUSE PROGRAM, SOME INFORMATION MAY BE OMITTED. This clinical summary was aggregated from multiple sources. Caution should be exercised in using it in the provision of clinical care. This summary normalizes information from multiple sources, and as a consequence, information in this document may materially change the coding, format and clinical context of patient data. In addition, data may be omitted in some cases. CLINICAL DECISIONS SHOULD BE BASED ON THE PRIMARY CLINICAL RECORDS. [facility] [employer] [facility]. provides no warranty or guarantee of the accuracy or completeness of information in this document.
--- NOTE | 2023-04-30 10:22 | MR_ITS ---
[address] [address] Patient Name: IDALMIS HATHAWAY MRN: [id number] date: 1955 Sex: M Assigned Patient Location: MRI Current Patient Location: Accession/Order Number: [id number] Exam Date: 04/30/2023 10:55 Report Date: 04/30/2023 12:01 At the request of: ALLISON MURGUIA Procedure: MR lumbar spine wo con EXAMINATION: MR lumbar spine wo con HISTORY: Lumbar Stenosis With Neuro Claudication COMPARISON: No relevant comparison available. TECHNIQUE: A variety of imaging planes and parameters were utilized for visualization of suspected pathology. FINDINGS: For the purposes of numbering, sagittal T2 image # 8 extends from the T11 vertebral body superiorly to the S3 level inferiorly. PARASPINAL AREA: 6.8 cm right renal cystic lesion BONES: Normal alignment with no acute fracture or spondylolisthesis CORD/CAUDA EQUINA: Normal caliber, contour, and signal intensity. DISC LEVELS: 12-L1: No significant disc/facet abnormality, spinal stenosis, or foraminal stenosis. L1-L2: Disc desiccation. Posterior disc bulging with no central or foraminal stenosis L2-L3: Disc desiccation. Posterior left foraminal disc protrusion. No central canal or right foraminal stenosis. Mild narrowing of the left neural foramen best seen on sagittal image 5 L3-L4: Disc desiccation and disc space narrowing. Posterior central annular tear. Broad-based disc/osteophyte complex extending posteriorly up to 3 mm. Mild trefoil central canal stenosis, mild left foraminal stenosis L4-L5: Mild disc desiccation. Posterior broad-based disc protrusion with ligamentum flavum and facet hypertrophy. Moderate trefoil narrowing of the central canal . Moderate right foraminal stenosis. No left foraminal stenosis . L5-S1: Right foraminal disc protrusion. Moderate ligamentum flavum hypertrophy. Moderate trefoil narrowing the central canal. Mild right foraminal stenosis. Left foraminal stenosis MR/MR lumbar spine wo con IMPRESSION: Degenerative changes with central and foraminal stenosis at multiple levels as detailed above Electronically authenticated by: RONY MIRELES Date: 04/30/2023 12:01
== END 2023-04-30 10:18 | disposition home or self-care (01) ==
LOC: MRI 10:17
PROVIDERS: PCP Nurse Practitioner Family; Visit Provider Anesthesiology
DX: M47.816 Spondylosis without myelopathy or radiculopathy, lumbar region (principal); M48.062 Spinal stenosis, lumbar region with neurogenic claudication; M46.1 Sacroiliitis, not elsewhere classified
CPT/HCPCS: 72148

== ENCOUNTER 2023-05-07 12:06 | Outpatient (OUT) | payer MEDICARE, MEDICAID, SELFPAY ==
--- OUTSIDE RECORDS SUMMARY | 2023-05-07 12:25 | XMS_ITS | CCD ---
Author Name Unknown Address [address] [place] [address] Organization [facility] Care Team Providers Care Mental Retardation Aide Name Role Phone SKYE TAYLOR Attending Unavailable BRANDON, SKYE Howell Admitting Unavailable BRANDON, SKYE Howell Consulting Unavailable MISC, DR IVEY Primary Care [...] Unavaila ble UNKNOWN, PCP Primary Care Unavailable Roderickoulssi, Dr. Griffin Attending Unavaila ble UNKNOWN, PCP Primary Care Unavailable Magaly Jefferson Unavailable [phone] Elpidio CUEVAS, Dickson Roque Attending Unavailable Allergies Allergy Classification Reported Allergen(s) Allergy Type Date of Onset Reaction(s) Facility (2 sources) Penicillins; Translations: [Penicillins] Allergy to drug (finding) Unknown -[facility] 250 DO Work Phone: (6 sources) Penicillin G Drug Allergy tachycardia [facility] [employer] Other Medications Current Medications Medication Drug Class(es) Dates Sig (Normalized) Sig (Original) amLODIPine 5 mg oral tablet (6 sources) Dihydropyridine Calcium Channel Gonzalez Start: 02-01-20 23 take 1 tablet by mouth every twenty-four hours amLODIPine Besylate 5 MG 1 tablet Orally Once a day for 90 days Jan, Active FreeStyle Roland 14 Day Clarion - (4 sources) Start: 04-02-19 24 FreeStyle Roland 14 Day Clarion - as directed SQ As Directed for 30 days Mar, Active Freestyle Roland 14 day sensor (4 sources) Start: 04-02-19 24 Freestyle Roland 14 day sensor 1 SQ [...] 18-Jul-2021 Active take 1 capsule by [facility] every twelve hours Gabapentin 400 MG 1 [...] Historical Records Officeon 06-09-2022 Historical Records Office [id number]:[id number] Normal [facility] Echocardiogramon 03-27-[address], [place] [address] TRANSTHORACIC ECHOCARDIOGRAM REPORT Patient Name: IDALMIS Mcmahon Physician: [id number] Cameron Olivares MD Study Date: 03/27/2022 Referring Physician: CAMERON OLIVARES MRN/PID: [id number] PCP: Accession/Order#: [id number] Department Location: [facility] Date of : 1955 Fellow: Gender: M Nurse: Admit 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: 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 Supervisor: Winifred Suresh RD, [facility] Height: 170.18 cm CC Report to: Weight: 88.45 kg Study Type: Echocardiogram BSA: 2.00 m2 Blood Pressure: 144 /80 mmHg Diagnosis/ICD: Q35-Xnqbpmnuq (primary) hypertension; R01.1-Cardiac murmur, unspecified Indication: Abnormal EKG, Diabetes, Former Smoker, Obesity Procedure/CPT: Echo Complete w Full [id number] Study Detail: The following Echo studies were [...] mmHg PIEDV: 2.28 m/s PADP: 23.8 mmHg [id number] Cameron Olivares MD Electronically signed on 03/27/2022 at 2:04:12 PM Final Normal [facility] Tobacco Screening.on 023 Adult depression screening assessment No [facility] 250 DO Work Phone: Fall risk assessment c) Not medically indicated [facility] 250 DO Work Phone: Tobacco use status [facility] b) No [facility] 250 DO Work Phone: GLYCOHEMOGLOBIN A1Con 2020 ADA RECOMMENDATION ADA THERAPEUTIC TARGET 6.0 - 7.0 ACTION SUGGESTED > 7.0 Normal [facility] Comment on above: Performed By: #### A 1C #### [facility] [address] [place] [address] [address] Fanta Evans Glucose [Mass/Vol] 134 mg/dL Normal [facility] Comment on above: Performed By: #### A 1C #### [facility] [address] [place] [address] [address] Fanta Evans HbA1c (Bld) [Mass fraction] 6.3 % Critically high <=6.0 [facility] Comment on above: Performed By: #### A 1C #### [facility] [address] [place] [address] [address] Fanta Evans GLYCOHEMOGLOBIN A1Con 2020 ADA RECOMMENDATION ADA THERAPEUTIC TARGET 6.0 - 7.0 ACTION SUGGESTED > 7.0 Normal [facility] Comment on above: Performed By: #### A 1C #### [facility] [address] [place] [address] Sandra Cara Glucose [Mass/Vol] 148 mg/dL Normal [facility] Comment on above: Performed By: #### A 1C #### [facility] [address] [place] [address] Sandra Santillanen HbA1c (Bld) [Mass fraction] 6.8 % Critically high <=6.0 [facility] Comment on above: Performed By: #### A 1C #### [facility] [address] [place] [address] Sandra Marroquin GLYCOHEMOGLOBIN A1Con 2020 Glucose [Mass/Vol] 140 mg/dL Normal [facility] Comment on above: Performed By: #### A 1C #### [facility] [address] [place] [address] Sandra Santillanen HbA1c (Bld) [Mass fraction] 6.5 % Critically high <=6.0 [facility] Comment on above: Performed By: #### A 1C #### [facility] [address] [place] [id number] Sandra Marroquin LIPID PROFILEon 03-23-2020 CHOL-HDL RATIO NORM SEE BELOW Normal [facility] Comment on above: Result Comment: 3.3 - 4.4 LOW RISK 4.4 - 7.1 AVERAGE RISK 7.1 - 11.0 MODERATE RISK >11.0 HIGH RISK Performed By: #### L IPID #### [facility] [address] [place], [place] [address] Sandra Cara Cholesterol [Mass/Vol] 183 mg/dL Normal <=200 Th [facility] Comment on above: Performed By: #### L IPID #### [facility] [address] [place], [place] [address] Sandra Cara Cholesterol in HDL [Mass/Vol] 54 mg/dL Normal [facility] Comment on above: Performed By: #### L IPID #### [facility] [address] [place], [place] [address] Sandra Cara Cholesterol in LDL [Mass/Vol] 116.0 mg/dL Normal [facility] Comment on above: Performed By: #### L IPID #### [facility] [address] [place] [id number] Sandra Cara Cholesterol.total/Chol esterol in HDL [Mass ratio] 3.4 {ratio} Normal [facility] Comment on above: Performed By: #### L IPID #### [facility] [address] [place] [id number] Sandra Cara HDL NORMAL > or = 60 mg/dl - LOW CARDIOVASCULAR RISK <40 mg/dl - HIGH CARDIOVASCULAR RISK Normal [facility] Comment on above: Performed By: #### L IPID #### [facility] [address] [place] [id number] Sandra Cara LDL CALC NORMAL SEE BELOW Normal [facility] Comment on above: Result Comment: <100 mg/dl OPTIMAL 100 - 129 mg/dl NEAR OR ABOVE OPTIMAL 130 - 159 mg/dl BORDERLINE HIGH 160 - 189 mg/dl HIGH >190 mg/dl VERY HIGH Performed By: #### L IPID #### [facility] [address] [place], [place] [address] Sandra Cara Triglyceride [Mass/Vol] 65 mg/dL Normal <=150 [facility] Comment on above: Performed By: #### L IPID #### [facility] [address] [place] [id number] Sandra Cara VLDL CALC 13.0 mg/dL Normal [facility] Comment on above: Performed By: #### L IPID #### [facility] [address] [place], [place] [address] Sandra Marroquin Vital Signs Date Time Vital Sign Value Performing Clinician Facility 03-29-2023 11:30-0500 Body height 172.72 cm Magayl Jefferson Other [facility] Other 03-29-2023 11:30-0500 Body mass index (BMI) [Ratio] 27.52 kg/m2 Magaly Jefferson Other [facility] Other 03-29-2023 11:30-0500 Body weight 82.1 kg Magaly Jefferson Other [facility] Other 03-29-2023 11:30-0500 Diastolic blood pressure 80 mm[Hg] Magaly Jefferson Other [facility] Other 03-29-2023 11:30-0500 SaO2% (BldA) [Mass fraction] 98 % Magaly Jefferson Other [facility] Other 03-29-2023 11:30-0500 Systolic blood pressure 136 mm[Hg] Magaly Jefferson Other [facility] Other 03-27-2022 15:28-0500 65 1 Referring Provider Unknown [facility] 250 DO Work Phone: Comment on above: [id number] 03-22-2022 15:39-0500 Diastolic blood pressure 82 mm[Hg] Referring Provider Unknown [facility] 250 DO Work Phone: 03-22-2022 15:39-0500 Systolic blood pressure 137 mm[Hg] Referring Provider Unknown [facility] 250 DO Work Phone: 03-22-2022 15:10-0500 Diastolic blood pressure 86 mm[Hg] Referring Provider Unknown [facility] 250 DO Work Phone: 03-22-2022 15:10-0500 Systolic blood pressure 158 mm[Hg] Referring Provider Unknown [facility] 250 DO Work Phone: 03-22-2022 15:09-0500 Body height 171.45 cm Referring Provider Unknown [facility] 250 DO Work Phone: 03-22-2022 15:09-0500 Body mass index (BMI) [Ratio] 30.09 kg/m2 Referring Provider Unknown [facility] Zeke 250 DO Work Phone: 03-22-2022 15:09-0500 Body surface area Derived from formula 2.01 m2 Referring Provider Unknown [facility] 250 DO Work Phone: 03-22-2022 15:09-0500 Body weight 88.45 kg Referring Provider Unknown [facility] 250 DO Work Phone: 03-22-2022 15:09-0500 Diastolic blood pressure 88 mm[Hg] Referring Provider Unknown [facility] 250 DO Work Phone: 03-22-2022 15:09-0500 Heart rate 92 /min Referring Provider Unknown [facility] Zeke 250 DO Work Phone: 03-22-2022 15:09-0500 Systolic blood pressure 160 mm[Hg] Referring Provider Unknown [facility] 250 DO Work Phone: Encounters Encounter Date Encounter Type Care Provider Facility Start: 04-23-2023 End: 04-24-2023 ambulatory Dickson Magallanes MD Facility: [facility] Start: 04-11-2023 End: 04-11-2023 ambulatory Magaly Jefferson Other [facility] Other Start: 04-11-2023 Telephone encounter [facility] Start: 04-05-2023 End: 04-05-2023 ambulatory Magaly Jefferson Other [facility] Other Start: 04-05-2023 Telephone encounter Magaly Breen [facility] Start: 03-30-2023 End: 03-30-2023 ambulatory Magaly Jefferson Other [facility] Other Start: 03-30-2023 Telephone encounter Magaly Breen her [facility] Start: 03-29-2023 End: 03-29-2023 ambulatory Magaly Jefferson Other [facility] Other Start: 03-29-2023 Office outpatient visit 25 minutes Magaly Jefferson [facility] Start: 02-02-2023 End: 02-02-2023 ambulatory Magaly Jefferson Other [facility] Other Start: 02-02-2023 Telephone encounter Magaly Breen her [facility] Start: 09-28-[address] Cameron Olivares Facility: Start: 06-08-2022 ambulatory Facility: [facility] Start: 03-27-2022 Chart Update Referring Prov ider Unknown [facility] 250 DO Work Phone: Start: 03-27-[address] Cameron Olivares Facility:[id number] Start: 03-22-2022 Patient encounter procedure Referring Provider Unknown [facility] 250 DO Work Phone: Start: 03-22-[address] Cameron Olivares Facility: Start: 02-23-[address] Cameron Olivares Facility:[facility] Start: 01-14-2021 End: 01-15-2021 ambulatory SKYE [...] Cameron Olivares, Status: Pen, Time: 2:00 PM [facility] 250 DO Work Phone: Start: 03-27-2022 ECHO, Provider: AMERICA QUIROZ [facility] ULTRASOUND 01,[id number], Status: Pen, Time: 8:45 AM ECHO, Provider: MEDHAT [facility]TR[facility] 01,[id number], Status: Pen, Time: 8:[address] [facility] Work Phone: Immunizations Immunization Date Immunization Notes Care Provider Yina cooper 01-31-2023 influenza, high dose seasonal, preservative-free Magaly Jefferson Other [facility] Other 01-24-2022 influenza, injectabl e, quadrivalent, preservative free Referring Provider [facility] Work Phone: 01-24-2022 Pfizer COVID-19 Vac Bivalent 30 MCG/0.3ML Intramuscular Suspension Referring Provider Unknown [facility] 250 DO Work Phone: 08-23-2021 Moderna COVID-19 Vaccine 100 MCG/0.5ML Intramuscular Suspension Referring Provider Unknown [facility] 250 DO Work Phone: 02-01-2021 Moderna COVID-19 Vaccine 100 MCG/0.5ML Intramuscular Suspension Referring Provider Unknown [facility] 250 DO Work Phone: 01-17-2021 influenza, injectabl e, quadrivalent, preservative free Referring Provider Unknown [facility] 250 DO Work Phone: 06-26-2020 Moderna COVID-19 Vaccine 100 MCG/0.5ML Intramuscular Suspension Referring Provider Unknown [facility] 250 DO Work Phone: 05-29-2020 Moderna COVID-19 Vaccine 100 MCG/0.5ML Intramuscular Suspension Referring Provider Unknown [facility] 250 DO Work Phone: 03-30-2020 influenza, injectabl e, quadrivalent, preservative free Referring Provider Unknown [facility] 250 DO Work Phone: 04-01-2019 influenza, injectabl e, quadrivalent, contains preservative Referring Provider Unknown [facility] 250 DO Work Phone: Payers Date Payer Category Payer Medicaid 2023 Unknown 1957 Self-pay [id number] 1955 Unknown [id number] 2.16.84 [id number] 1955 Unknown [id number] 2.16.84 [id number] 1955 Unknown [id number] 2.16.84 [id number] 1955 Unknown [id number] 2.16.8 [id number] 1955 Unknown [id number] 2.16. [id number] 1955 Unknown [id number] 2.16. [id number] 1955 Unknown [id number] 2.16. [id number] Medicaid [id number] Medicare [id number] 2.1 [id number] Social History Date Type Detail Facility Occasional alcohol use Occasional alcohol use -[facility] Frank DO Work Phone: Sex Assigned At Sex Assigned At Bir th [facility] Other Medical Equipment Procedure Code Equipment Code Equipment Original Text Equi pment Identifier Dates OneTouch Delica Plus [id number] - Evaluation note 04-05-2023 Note Date & Type Note Facility 04-05-2023 Evaluation note Encounter Date Diagnosis Assessment Notes Mar, Arthritis of right hip (ICD-10 - M16.11) Mar, Sciatica of right side (ICD-10 - M54.31) Mar, Degeneration of intervertebral disc of lumbar region (ICD-10 - M51.36) [facility] Other Evaluation note 03-30-2023 Note Date & Type Note Facility 03-30-2023 Evaluation note Encounter Date Diagnosis Assessment Notes Mar, Type 2 diabetes mellitus with diabetic neuropathic arthropathy, without long-term current use of insulin (ICD-10 - E11.610) [facility] Other Evaluation note 03-29-2023 Note Date & [...] Arthritis of right hip (ICD-10 - M16.11) [facility] Other Evaluation note Note Date & Type Note Facility Evaluation note No Information [employer] Other History general Narrative - Reported Note Date & Type Note Facility History general Narrative - Reported Type Medical History DM (diabetes mellitus) Medical History Neuropathic pain Medical History HTN (hypertension) Surgical History appendectomy Surgical History eyes Surgical History hand surgery [facility] Other History of Present illness Narrative Note [...] will consider adding diuretics6. Follow-up in 6-month [facility] 250 DO Work Phone: Summary [...] disc of lumbar region (M51.36) Referral Organization [facility] Referring Provider First Name Magaly Referring Provider Last Name Ronny Referring Provider Specialty Nurse Pract itioner Referred Organization [facility] Referred Address [address] [place], [place],[address] Referred Provider Specialty Pain Medicin e Referral Priority Routine Additional Source Comments INFORMATION SOURCE (unrecogn ized section and content) DATE CREATED AUTHOR 01/22/2021 [facility] DATE CREATED AUTHOR AUTHOR'S ORGANIZ ATION 03/29/2022 [facility] DATE CREATED AUTHOR AUTHOR'S ORGANIZ ATION 06/10/2022 [facility] DATE CREATED AUTHOR AUTHOR'S ORGANIZ ATION 09/29/2022 [facility] DATE CREATED AUTHOR AUTHOR'S ORGANIZ ATION 04/26/2023 [facility] (unrecognized sect ion and content) No Status Records FoundNo Status Records FoundNo Status Records FoundNo Status Records Found REASON FOR VISIT (unrecogniz ed section and content) lab resultsER Follow upCGMLyn Jacobson painMedication FOR RECORDS PERTAINING TO PATIENTS [...] BE BASED ON THE PRIMARY CLINICAL RECORDS. [facility], [facility]. provides no warranty or guarantee of the accuracy or completeness of information in this document.
--- NOTE | 2023-05-07 12:41 | P.CN_ITS ---
Consult Note: HPI Data of Consult Patient: known to practice within the last 3 years Consult date: 05/07/23 Requesting Physician: Dickson Magallanes MD Primary Care Provider: SIMON COOPER Consult Narrative Reason for consult: low back, right leg pain Narrative: 67yof who presents for assessment. persistent right low back and leg pain. mri recently completed, significant for multilevel moderate stenosis, as well as facet arthropathy in lower lumbar spine. continues to engage in a series of provider directed home exercises, which he has attempted for >6 weeks, with minimal benefit. has trialed gabapentin, celebrex for >6 weeks. denies adverse med side effects. cc:: CC: Dickson Magallanes MD Review of Systems ROS Status of ROS 10 or more systems reviewed and unremark able except as noted in history and below Meds Home Medications and Allergies Home Medications Medication Instructions Recorded Confirmed Type amlodipine 5 mg tablet 5 mg PO DAILY 03/26/23 03/26/23 History gabapentin 400 mg capsule 400 mg PO BID 03/26/23 03/26/23 History glipizide 10 mg tablet 10 mg PO BID 03/26/23 03/26/23 History lisinopril 30 mg tablet 30 mg PO DAILY 03/26/23 03/26/23 History metformin 850 mg tablet 850 mg PO TID 03/26/23 03/26/23 History celecoxib 200 mg capsule (Celebrex) 200 mg PO BID PRN pain 04/23/23 04/23/23 History ibuprofen 800 mg tablet (IBU) 800 mg PO TID PRN pain 04/23/23 04/23/23 History methyl salicylate-menthol 30 %-10 1 applic topical BID PRN muscle 04/23/23 04/23/23 History % topical stick (Icy Hot) pain Allergies Allergy/AdvReac Type Severity Reaction Status Date / Time Penicillins Allergy Hives Verified 03/26/23 13:31 Exam Narrative Exam Narrative: Psych-alert and oriented x 3. Attentive and appropriate, constitutionally normal, displays normal mood and affect per situation. There are no obvious deficits in memory, reasoning, or intellect.? Skin-no obvious rashes, bruising, erythema noted to the patient's area of pain.? Extremities- extremities are warm with minimal edema and palpable pulses. Lumbar-tenderness to palpation noted in the lumbar spine and paraspinal musculature. Pain is elicited with flexion, extension, and lateral rotation of the lumbar spine. Range of motion is diminished with these motions. Facet loading maneuvers are positive.? Strength-noted to be unremarkable with the exception of decreased strength rated at 4 out of 5 in right quadriceps femoris, anterior tibialis. Sensory-no notable sensory deficits in the bilateral lower extremities to touch or pinprick in all dermatomal distributions with the exception to decreased sensation to the right L4, 5 dermatomal distribution Sacroiliac - tenderness to palpation over right psis. positive estrella's on the right. positive thigh thrust on right. Coordination remains intact.? Gait remains non-antalgic. Assessment and Plan Assessment and Plan (1) Lumbar stenosis with neurogenic claudication: (2) Sacroiliac joint dysfunction of right side: Plan 67yom who presents for assessment. failed conservative measures, as noted. imaging reviewed, as noted. given symptoms and imaging, prudent to attempt right l4-5, l5-s1 tfesi under fluoroscopic guidance. may also benefit from right sij injection. he is in agreement. meds reviewed, no changes. follow up after procedure.
== END 2023-05-07 12:07 | disposition home or self-care (01) ==
PROVIDERS: PCP Nurse Practitioner Family; Visit Provider Anesthesiology
DX: M48.062 Spinal stenosis, lumbar region with neurogenic claudication (principal); M53.3 Sacrococcygeal disorders, not elsewhere classified
CPT/HCPCS: G0463

== ENCOUNTER 2023-05-21 09:55 | Day surgery (SDC) | payer MEDICARE, MEDICAID, SELFPAY ==
--- OUTSIDE RECORDS SUMMARY | 2023-05-21 10:04 | XMS_ITS | CCD ---
Author Name Unknown Address [address] [place] [address] Organization [facility] Care Team Providers Care Steno Typist Name Role Phone SKYE TAYLOR Attending Unavailable [...] Unavaila ble UNKNOWN, PCP Primary Care Unavailable Traboulssi, Dr. Griffin Attending Unavaila ble UNKNOWN, PCP Primary Care Unavailable Magaly Jefferson Unavailable Elpidio CUEVAS, Dickson Roque Attending Unavailable Dickson Magallanes MD Attending Unavailable Allergies Allergy Classification Reported Allergen(s) Allergy Type Date of Onset Reaction(s) Facility (2 sources) Penicillins; Translations: [Penicillins] Allergy to drug (finding) Unknown -[facility] DO Work Phone: (6 sources) Penicillin G Drug Allergy tachycardia [employer] Other Medications Current Medications Medication Drug Class(es) Dates Sig (Normalized) Sig (Original) amLODIPine 5 mg oral tablet (6 sources) Dihydropyridine Calcium Channel Gonzalez Start: 02-01-20 take 1 tablet by mouth every twenty-four hours amLODIPine Besylate 5 MG 1 tablet Orally Once a day for 90 days Jan, Active FreeStyle Roland 14 Day [place] - (4 sources) Start: 04-02-19 FreeStyle Roland 14 Day [place] - as directed SQ As Directed for [...] DAILY. Quantity: 90 Refills: 3 Ordered: 22-Mar-2022 Cameron Olivares MD Active gabapentin 400 mg oral capsule (10 [...] 18-Jul-2021 Active take 1 capsule by mo [facility] every twelve hours Gabapentin 400 MG 1 [...] Historical Records Officeon 06-09-2022 Historical Records Office [id number] Normal [facility] Echocardiogramon 03-27-[address], [address] [address] TRANSTHORACIC ECHOCARDIOGRAM REPORT Patient Name: IDALMIS RIVAS Mcmahon Physician: [id number] Cameron Olivares MD Study Date: 03/27/2022 Referring Physician: CAMERON OILVARES MRN/PID: [id number] PCP: Accession/Order#: [id number] Department Location: [facility] Date of : 1955 Fellow: Gender: M Nurse: Admit Date: Web Developer: Winifred Suresh [facility] Height: 170.18 cm CC Report to: Weight: 88.45 kg Study Type: Echocardiogram BSA: 2.00 m2 Blood Pressure: 144 /80 mmHg Diagnosis/ICD: M08-Etdeowxsl (primary) hypertension; R01.1-Cardiac murmur, unspecified Indication: Abnormal EKG, Diabetes, Former Smoker, Obesity Procedure/CPT: Echo Complete w Full [id number] Study Detail: The following Echo studies were [...] mmHg PIEDV: 2.28 m/s PADP: 23.8 mmHg [id number] Cameron Olivares MD Electronically signed on 03/27/2022 at 2:04:12 PM Final Normal [facility] Tobacco Screening.on 023 Adult depression screening assessment No [facility] 250 DO Work Phone: Fall risk assessment c) Not medically indicated [facility] DO Work Phone: Tobacco use status [facility] b) No [facility] DO Work Phone: GLYCOHEMOGLOBIN A1Con 2020 ADA RECOMMENDATION ADA THERAPEUTIC TARGET 6.0 - 7.0 ACTION SUGGESTED > 7.0 Normal [facility] Comment on above: Performed By: #### A 1C #### [facility] [address] [place] [address] Dr. Fanta Evans Glucose [Mass/Vol] 134 mg/dL Normal [facility] Comment on above: Performed By: #### A 1C #### [facility] [address] [place] [address] [address] Fanta Evans HbA1c (Bld) [Mass fraction] 6.3 % Critically high <=6.0 [facility] Comment on above: Performed By: #### A 1C #### [facility] [address] [place] [address] Dr. Fanta Evans GLYCOHEMOGLOBIN A1Con 2020 ADA RECOMMENDATION ADA THERAPEUTIC TARGET 6.0 - 7.0 ACTION SUGGESTED > 7.0 Normal [facility] Comment on above: Performed By: #### A 1C #### [facility] [address] [place] [address] Sandra Marroquin Glucose [Mass/Vol] 148 mg/dL Normal [facility] Comment on above: Performed By: #### A 1C #### [facility] [address] [place] [address] Sandra Marroquin HbA1c (Bld) [Mass fraction] 6.8 % Critically high <=6.0 [facility] Comment on above: Performed By: #### A 1C #### [facility] [address] [place] [address] Sandra Marroquin GLYCOHEMOGLOBIN A1Con 2020 Glucose [Mass/Vol] 140 mg/dL Normal [facility] Comment on above: Performed By: #### A 1C #### [facility] [address] [place] [address] Sandra Marroquin HbA1c (Bld) [Mass fraction] 6.5 % Critically high <=6.0 [facility] Comment on above: Performed By: #### A 1C #### [facility] [address] [place] [address] Sandra Marroquin LIPID PROFILEon 03-23-2020 CHOL-HDL RATIO NORM SEE BELOW Normal [facility] Comment on above: Result Comment: 3.3 - 4.4 LOW RISK 4.4 - 7.1 AVERAGE RISK 7.1 - 11.0 MODERATE RISK >11.0 HIGH RISK Performed By: #### L IPID #### [facility] [address] [place], [place] [address] Sandra Cara Cholesterol [Mass/Vol] 183 mg/dL Normal <=200 [facility] Comment on above: Performed By: #### L IPID #### [facility] [address] [place], [place] [address] Sandra Cara Cholesterol in HDL [Mass/Vol] 54 mg/dL Normal [facility] Comment on above: Performed By: #### L IPID #### [facility] [address] [place], [place] [address] Sandra Cara Cholesterol in LDL [Mass/Vol] 116.0 mg/dL Normal [facility] Comment on above: Performed By: #### L IPID #### [facility] [address] [place] [id number] Sandra Cara Cholesterol.total/Chol esterol in HDL [Mass ratio] 3.4 {ratio} Normal [facility] Comment on above: Performed By: #### L IPID #### [facility] [address] [place], [place] [address] Sandra Cara HDL NORMAL > or = 60 mg/dl - LOW CARDIOVASCULAR RISK <40 mg/dl - HIGH CARDIOVASCULAR RISK Normal [facility] Comment on above: Performed By: #### L IPID #### [facility] [address] [place], [place] [address] Sandra Cara LDL CALC NORMAL SEE BELOW Normal [facility] Comment on above: Result Comment: <100 mg/dl OPTIMAL 100 - 129 mg/dl NEAR OR ABOVE OPTIMAL 130 - 159 mg/dl BORDERLINE HIGH 160 - 189 mg/dl HIGH >190 mg/dl VERY HIGH Performed By: #### L IPID #### [facility] [address] [place], [place] [address] Sandra Cara Triglyceride [Mass/Vol] 65 mg/dL Normal <=150 [facility] Comment on above: Performed By: #### L IPID #### [facility] [address] [place], [place] [address] Sandra Cara VLDL CALC 13.0 mg/dL Normal [facility] Comment on above: Performed By: #### L IPID #### [facility] [address] [place] [id number] Sandra Marroquin Vital Signs Date Time Vital Sign Value Performing Clinician Facility 03-29-2023 11:30-0500 Body height 172.72 cm Magaly Jefferson Other [employer] Other 03-29-2023 11:30-0500 Body mass index (BMI) [Ratio] 27.52 kg/m2 Magaly Jefferson Other [employer] [facility] Other 03-29-2023 11:30-0500 Body weight 82.1 kg Magaly Jefferson Other [employer] [facility] Other 03-29-2023 11:30-0500 Diastolic blood pressure 80 mm[Hg] Magaly Jefferson Other [employer] [facility] Other 03-29-2023 11:30-0500 SaO2% (BldA) [Mass fraction] 98 % Magaly Jefferson Other [employer] [facility] Other 03-29-2023 11:30-0500 Systolic blood pressure 136 mm[Hg] Magaly Jefferson Other [employer] Other 03-27-2022 15:28-0500 65 1 Referring Provider Unknown [facility] DO Work Phone: Comment on above: [id number] 03-22-2022 15:39-0500 Diastolic blood pressure 82 mm[Hg] Referring Provider Unknown [facility] DO Work Phone: 03-22-2022 15:39-0500 Systolic blood pressure 137 mm[Hg] Referring Provider Unknown [facility] DO Work Phone: 03-22-2022 15:10-0500 Diastolic blood pressure 86 mm[Hg] Referring Provider Unknown [facility] DO Work Phone: 03-22-2022 15:10-0500 Systolic blood pressure 158 mm[Hg] Referring Provider Unknown [facility] DO Work Phone: 03-22-2022 15:09-0500 Body height 171.45 cm Referring Provider Unknown [facility] DO Work Phone: 03-22-2022 15:09-0500 Body mass index (BMI) [Ratio] 30.09 kg/m2 Referring Provider Unknown [facility] DO Work Phone: 03-22-2022 15:09-0500 Body surface area Derived from formula 2.01 m2 Referring Provider Unknown [facility] DO Work Phone: 03-22-2022 15:09-0500 Body weight 88.45 kg Referring Provider Unknown [facility] DO Work Phone: 03-22-2022 15:09-0500 Diastolic blood pressure 88 mm[Hg] Referring Provider Unknown [facility] DO Work Phone: 03-22-2022 15:09-0500 Heart rate 92 /min Referring Provider Unknown [facility] DO Work Phone: 03-22-2022 15:09-0500 Systolic blood pressure 160 mm[Hg] Referring Provider Unknown [facility] DO Work Phone: Encounters Encounter Date Encounter Type Care Provider Facility Start: 05-07-2023 End: 05-08-2023 ambulatory Dickson Magallanes MD Facility: [facility] Start: 04-23-2023 End: 04-24-2023 ambulatory Dicksno Magallanes MD Facility: [facility] Start: 04-11-2023 End: 04-11-2023 ambulatory Magaly Jefferson Other [employer] [facility] Other Start: 04-11-2023 Telephone encounter Magaly Breen her [facility] Start: 04-05-2023 End: 04-05-2023 ambulatory Magaly Jefferson Other [employer] [facility] Other Start: 04-05-2023 Telephone encounter Magaly Breen her [facility] Start: 03-30-2023 End: 03-30-2023 ambulatory Magaly Jefferson Other [employer] [facility] Other Start: 03-30-2023 Telephone encounter Magaly Breen her [facility] Start: 03-29-2023 End: 03-29-2023 ambulatory Magaly Jefferson Other [employer] [facility] Other Start: 03-29-2023 Office outpatient visit 25 minutes Magaly Jefferson [facility] Start: 02-02-2023 End: 02-02-2023 ambulatory Magaly Jefferson Other [employer] [facility] Other Start: 02-02-2023 Telephone encounter Magaly Breen her [facility] Start: 09-28-[address] Cameron Olivares Facility: Start: 06-08-2022 ambulatory Facility:[facility] Start: 03-27-2022 Chart Update Referring Prov ider Unknown [facility] DO Work Phone: Start: 03-27-[address] Cameron Olivares Facility:[id number] Start: 03-22-2022 Patient encounter procedure Referring Provider Unknown [facility] DO Work Phone: Start: 03-22-[address] Cameron Olivares Facility: Start: 02-23-[address] Cameron Olivares Facility:[facility] Start: 01-14-2021 End: 01-15-2021 ambulatory SKYE TAYLOR Facility: Start: 09-27-2020 End: 09-28-[address] DOCTOR TUCKER Facility:[facility] Start: 03-23-2020 End: 03-24-[address] KAYLA DAMON Facility: Procedures Date Procedure Procedure Detail Performing Clinician [...] Cameron Olivares, Status: Pen, Time: 2:00 PM [facility] 250 DO Work Phone: Start: 03-27-2022 ECHO, Provider: AMERICA QUIROZ [facility] ULTRASOUND 01,[id number], Status: Pen, Time: 8:45 AM ECHO, Provider: MEDHAT [facility] ULTRASOUND 01,[id number], Status: Pen, Time: 8:45 AM [facility] 250 DO Work Phone: Immunizations Immunization Date Immunization Notes Care Provider Yina cooper 01-31-2023 influenza, high dose seasonal, preservative-free Magaly Jefferson Other [employer] Other 01-24-2022 influenza, injectabl e, quadrivalent, preservative free Referring Provider Unknown [facility] 250 DO Work Phone: 01-24-2022 Pfizer COVID-19 Vac Bivalent 30 MCG/0.3ML Intramuscular Suspension Referring Provider Unknown [facility] 250 DO Work Phone: 08-23-2021 Moderna COVID-19 Vaccine 100 MCG/0.5ML Intramuscular Suspension Referring Provider Unknown [facility] 250 DO Work Phone: 02-01-2021 Moderna COVID-19 Vaccine 100 MCG/0.5ML Intramuscular Suspension Referring Provider Unknown [facility] 250 DO Work Phone: 01-17-2021 influenza, injectabl e, quadrivalent, preservative free Referring Provider Unknown [place] [address] DO Work Phone: 06-26-2020 Moderna COVID-19 Vaccine 100 MCG/0.5ML Intramuscular Suspension Referring Provider Unknown [facility] 250 DO Work Phone: 05-29-2020 Moderna COVID-19 Vaccine 100 MCG/0.5ML Intramuscular Suspension Referring Provider Unknown [place] [address] DO Work Phone: 03-30-2020 influenza, injectabl e, quadrivalent, preservative free Referring Provider Unknown [place] [address] DO Work Phone: 04-01-2019 influenza, injectabl e, quadrivalent, contains preservative Referring Provider Unknown [place] [address] DO Work Phone: Payers Date Payer Category Payer Medicaid 2023 Unknown 1957 Self-pay [id number] 1955 Unknown [id number] 2.16.84 [id number] 1955 Unknown [id number] 2.16.84 [id number] 1955 Unknown [id number] 2.16.84 [id number] 1955 Unknown [id number] 2.16.8 [id number] 1955 Unknown [id number] 2.16. [id number] 1955 Unknown [id number] 2.16. [id number] 1955 Unknown [id number] 2.16. [id number] 1955 Unknown [id number] 2.16. [id number] Medicaid [id number] Medicare [id number] 2.1 [id number] Social History Date Type Detail Facility Occasional alcohol use Occasional alcohol use -[facility] DO Work Phone: Sex Assigned At Sex Assigned At Bir th [employer] Other Medical Equipment Procedure Code Equipment Code Equipment Original Text Equi pment Identifier Dates OneTouch Delica Plus [id number] - Evaluation note 04-05-2023 Note Date & Type Note Facility 04-05-2023 Evaluation note Encounter Date Diagnosis Assessment Notes Mar, Arthritis of right hip (ICD-10 - M16.11) Mar, Sciatica of right side (ICD-10 - M54.31) Mar, Degeneration of intervertebral disc of lumbar region (ICD-10 - M51.36) [employer] [facility] Other Evaluation note 03-30-2023 Note Date & Type Note Facility 03-30-2023 Evaluation note Encounter Date Diagnosis Assessment Notes Mar, Type 2 diabetes mellitus with diabetic neuropathic arthropathy, without long-term current use of insulin (ICD-10 - E11.610) [employer] Other Evaluation note 03-29-2023 Note Date & [...] Arthritis of right hip (ICD-10 - M16.11) [employer] Other Evaluation note Note Date & Type Note Facility Evaluation note No Information [employer] Other History general Narrative - Reported Note Date & Type Note Facility History general Narrative - Reported Type Medical History DM (diabetes mellitus) Medical History Neuropathic pain Medical History HTN (hypertension) Surgical History appendectomy Surgical History eyes Surgical History hand surgery [employer] Other History of Present illness Narrative Note [...] will consider adding diuretics6. Follow-up in 6-month [facility] 250 DO Work Phone: Summary Purpose Family [...] disc of lumbar region (M51.36) Referral Organization [facility] Referring Provider First Name Magaly Referring Provider Last Name Ronny Referring Provider Specialty Nurse Pract itioner Referred Organization [facility] Referred Address [address], [place] Referred Provider Specialty Pain Medicin e Referral Priority Routine Additional Source Comments INFORMATION SOURCE (unrecogn ized section and content) DATE CREATED AUTHOR 01/22/2021 [facility] DATE CREATED AUTHOR AUTHOR'S ORGANIZ ATION 03/29/2022 [facility] DATE CREATED AUTHOR AUTHOR'S ORGANIZ ATION 06/10/2022 [facility] DATE CREATED AUTHOR AUTHOR'S ORGANIZ ATION 09/29/2022 [facility] DATE CREATED AUTHOR AUTHOR'S ORGANIZ ATION 05/19/2023 [facility] (unrecognized sect ion and content) No [...] BE BASED ON THE PRIMARY CLINICAL RECORDS. [facility] [employer] [facility]. provides no warranty or guarantee of the accuracy or completeness of information in this document.
[2023-05-21 10:42] LABS: Glucometer 123 mg/dL (74-106)
[2023-05-21 10:44] VITALS: BP 140/87; PULSE 74; RESP 16; TEMP 36.8; O2SAT 97
[2023-05-21 11:21] VITALS: BP 159/81; BP 160/81; PULSE 72; PULSE 76; RESP 18; O2SAT 97; O2SAT 98
[2023-05-21] MEDS: BUPIVACAINE HCL 0.25% PF 25 MG/10 ML VIAL INJ (11:23)
[2023-05-21] MEDS: 0.9 % SODIUM CHLORIDE 10 ML INJ (11:23)
[2023-05-21] MEDS: IOHEXOL 240 MG/ML - 10 ML VIAL INJ (11:23)
[2023-05-21] MEDS: LIDOCAINE HCL 2% PF 100 MG/5 ML VIAL 2 ML INJ (11:23)
[2023-05-21] MEDS: TRIAMCINOLONE ACETONIDE 40 MG/ML VIAL 80 MG INJ (11:23)
--- NOTE | 2023-05-21 11:30 | P.ON_ITS ---
Date of procedure: 05/21/23 Pre-op diagnosis: Lumbar stenosis with neurogenic claudication Post-op diagnosis: same as pre-op Procedure: Procedure: Right L4-5, L5-S1 transforaminal epidural steroid injection Medications: Bupivacaine 0.25% 2cc, lidocaine 2% 1cc, kenalog 80mg The patient was seen and examined in the preoperative holding area.? Informed consent was obtained and placed on the chart.? Patient was brought to the medical procedure unit and placed in the prone position where a timeout was completed verifying the correct patient, procedure site, position, and planned special equipment using sterile aseptic technique.? Under direct fluoroscopic visualization a 25-gauge Quincke tipped spinal needle was advanced to the designated neural foramen where contrast dye was injected to show adequate spread.? The needle was inserted at level right L4-5. There was no evidence of vascular or adverse uptake.? Epidural spread was appreciated.? The above- mentioned injectate was then placed in a 1.5 mL aliquot preceded by negative aspiration.? The needle was removed. The needle was inserted and the procedure repeated at level right L5-S1.? The surgery site was covered.? Patient was taken to the postprocedural recovery area and monitored for an appropriate length of time before found suitable for discharge in the accompaniment of a responsible adult. Anesthesia: Local Surgeon: Dickson Magallanes Pathology: none sent Condition: stable Disposition: no change
== END 2023-05-21 11:30 | disposition home or self-care (01) ==
LOC: SURGOUT 09:55
PROVIDERS: PCP Nurse Practitioner Family; Visit Provider Anesthesiology
DX: M48.062 Spinal stenosis, lumbar region with neurogenic claudication (principal); Z79.84 Long term (current) use of oral hypoglycemic drugs
CPT/HCPCS: 36415; 64483; 64484; 82948; Q9966

== ENCOUNTER 2023-06-04 09:12 | Day surgery (SDC) | payer MEDICARE, MEDICAID, SELFPAY ==
--- OUTSIDE RECORDS SUMMARY | 2023-06-04 09:19 | XMS_ITS | CCD ---
Author Name Unknown Address [address] [place] [address] Organization [facility] Care Team Providers Care Blood Bank Credit Clerk Name Role Phone SKYE TAYLOR Attending Unavailable [...] Unavailable Elpidio CUEVAS, Dickson Roque Attending Unavailable Elpidio CUEVAS, Dickson Roque Attending Unavailable Elpidio CUEVAS, Dickson Roque Attending Unavailable Allergies Allergy Classification Reported Allergen(s) Allergy Type Date of Onset Reaction(s) Facility (2 sources) Penicillins; Translations: [Penicillins] Allergy to drug (finding) Unknown [facility] 250 DO Work Phone: (6 sources) Penicillin G Drug Allergy tachycardia [employer] [facility] [employer] Other Medications Current Medications Medication Drug Class(es) Dates Sig (Normalized) Sig (Original) amLODIPine 5 mg oral tablet (6 sources) Dihydropyridine Calcium Channel Gonzalez Start: 02-01-20 take 1 tablet by mouth every twenty-four hours amLODIPine Besylate 5 MG 1 tablet Orally Once a day for 90 days Jan, Active FreeStyle Roland 14 Day [place] - (4 sources) Start: 04-02-19 FreeStyle Roland 14 Day [place] - as directed SQ As Directed for 30 days Mar, Active Freestyle Roladn 14 day sensor (4 sources) Start: 04-02-19 [...] 18-Jul-2021 Active take 1 capsule by mo uth every twelve hours Gabapentin 400 MG 1 [...] Historical Records Officeon 06-09-2022 Historical Records Office [id number] Normal [facility] Echocardiogramon 03-27-[address], [place] [address] TRANSTHORACIC ECHOCARDIOGRAM REPORT Patient Name: IDALMIS Mcmahon Physician: [id number] Cameron Olivares MD Study Date: 03/27/2022 Referring Physician: CAMERON OLIVARES MRN/PID: [id number] PCP: Accession/Order#: [id number] Department Location: [facility] Date of : 1955 Fellow: Gender: M Nurse: Admit Date: E Commerce Web Developer: Winifred Suresh RD, [facility] Height: 170.18 cm CC Report to: Weight: 88.45 kg Study Type: Echocardiogram BSA: 2.00 m2 Blood Pressure: 144 /80 mmHg Diagnosis/ICD: V36-[id number] (primary) hypertension; R01.1-Cardiac murmur, unspecified Indication: Abnormal EKG, Diabetes, Former Smoker, Obesity Procedure/CPT: Echo Complete w Full [id number] Study Detail: The following Echo studies were [...] mmHg PIEDV: 2.28 m/s PADP: 23.8 mmHg [id number] Cameron Olivares MD Electronically signed on 03/27/2022 at 2:04:12 PM Final Normal [facility] Tobacco Screening.on 023 Adult depression screening assessment No [facility] 250 DO Work Phone: Fall risk assessment c) Not medically indicated [facility] 250 DO Work Phone: Tobacco use status [facility] b) No [facility] 250 DO Work Phone: GLYCOHEMOGLOBIN A1Con 2020 ADA RECOMMENDATION ADA THERAPEUTIC TARGET 6.0 - 7.0 ACTION SUGGESTED > 7.0 Normal [facility] Comment on above: Performed By: #### A 1C #### [facility] Laboratory [address] [place] [address] Dr. Fanta Evans Glucose [Mass/Vol] 134 mg/dL Normal [facility] Comment on above: Performed By: #### A 1C #### [facility] Laboratory [address] [place] [address] [address] Fanta Evans HbA1c (Bld) [Mass fraction] 6.3 % Critically high <=6.0 [facility] Comment on above: Performed By: #### A 1C #### [facility] [address] [place] [address] [address] Fanta Evans GLYCOHEMOGLOBIN A1Con 2020 ADA RECOMMENDATION ADA THERAPEUTIC TARGET 6.0 - 7.0 ACTION SUGGESTED > 7.0 Normal [facility] Comment on above: Performed By: #### A 1C #### [facility] [address] [place] [address] Sandra Marroquin Glucose [Mass/Vol] 148 mg/dL Normal [facility] Comment on above: Performed By: #### A 1C #### [facility] [address] [place] [address] Sandra Marroquin HbA1c (Bld) [Mass fraction] 6.8 % Critically high <=6.0 [facility] Comment on above: Performed By: #### A 1C #### [facility] [address] [place] [address] Sandra Marroquin GLYCOHEMOGLOBIN A1Con 2020 Glucose [Mass/Vol] 140 mg/dL Normal [facility] Comment on above: Performed By: #### A 1C #### [facility] [address] [place] [address] Sandra Marroquin HbA1c (Bld) [Mass fraction] 6.5 % Critically high <=6.0 [facility] Comment on above: Performed By: #### A 1C #### [facility] [address] [place] [address] Sandra Marroquin LIPID PROFILEon 03-23-2020 CHOL-HDL RATIO NORM SEE BELOW Normal [facility] Comment on above: Result Comment: 3.3 - 4.4 LOW RISK 4.4 - 7.1 AVERAGE RISK 7.1 - 11.0 MODERATE RISK >11.0 HIGH RISK Performed By: #### L IPID #### [facility] [address], [place] [address] Sandra Cara Cholesterol [Mass/Vol] 183 mg/dL Normal <=200 [facility] Comment on above: Performed By: #### L IPID #### [facility] [address], [place] [address] Sandra Cara Cholesterol in HDL [Mass/Vol] 54 mg/dL Normal [facility] Comment on above: Performed By: #### L IPID #### [facility] [address], [place] [address] Sandra Cara Cholesterol in LDL [Mass/Vol] 116.0 mg/dL Normal [facility] Comment on above: Performed By: #### L IPID #### [facility] [address], [place] [address] Sandra Cara Cholesterol.total/Chol esterol in HDL [Mass ratio] 3.4 {ratio} Normal [facility] Comment on above: Performed By: #### L IPID #### [facility] [address], [place] [address] Sandra Cara HDL NORMAL > or = 60 mg/dl - LOW CARDIOVASCULAR RISK <40 mg/dl - HIGH CARDIOVASCULAR RISK Normal [facility] Comment on above: Performed By: #### L IPID #### [facility] [address], [place] [address] Sandra Cara LDL CALC NORMAL SEE BELOW Normal [facility] Comment on above: Result Comment: <100 mg/dl OPTIMAL 100 - 129 mg/dl NEAR OR ABOVE OPTIMAL 130 - 159 mg/dl BORDERLINE HIGH 160 - 189 mg/dl HIGH >190 mg/dl VERY HIGH Performed By: #### L IPID #### [facility] [address], [place] [address] Sandra Cara Triglyceride [Mass/Vol] 65 mg/dL Normal <=150 [facility] Comment on above: Performed By: #### L IPID #### [facility] [address], [place] [address] Sandra Cara VLDL CALC 13.0 mg/dL Normal [facility] Comment on above: Performed By: #### L IPID #### [facility] [address] [place] [id number] Sandra Marroquin Vital Signs Date Time Vital Sign Value Performing Clinician Facility 03-29-2023 11:30-0500 Body height 172.72 cm Magaly Jefferson Other [facility] Other 03-29-2023 11:30-0500 Body mass index (BMI) [Ratio] 27.52 kg/m2 Magaly Jefferson Other [facility] Other 03-29-2023 11:30-0500 Body weight 82.1 kg Magaly Jefferson Other [facility] Other 03-29-2023 11:30-0500 Diastolic blood pressure 80 mm[Hg] Magaly Jefferson Other [facility] Other 03-29-2023 11:30-0500 SaO2% (BldA) [Mass fraction] 98 % Magaly Jefferson Other [facility] Other 03-29-2023 11:30-0500 Systolic blood pressure 136 mm[Hg] Magaly Jefferson Other [facility] Other 03-27-2022 15:28-0500 65 1 Referring Provider Unknown [facility] 250 DO Work Phone: Comment on above: [id number] 03-22-2022 15:39-0500 Diastolic blood pressure 82 mm[Hg] Referring Provider Unknown [facility] 250 DO Work Phone: 03-22-2022 15:39-0500 Systolic blood pressure 137 mm[Hg] Referring Provider Unknown [facility] 250 DO Work Phone: 03-22-2022 15:10-0500 Diastolic blood pressure 86 mm[Hg] Referring Provider Unknown [facility] 250 DO Work Phone: 03-22-2022 15:10-0500 Systolic blood pressure 158 mm[Hg] Referring Provider Unknown [facility] 250 DO Work Phone: 03-22-2022 15:09-0500 Body height 171.45 cm Referring Provider Unknown [facility] 250 DO Work Phone: 03-22-2022 15:09-0500 Body mass index (BMI) [Ratio] 30.09 kg/m2 Referring Provider Unknown [facility] 250 DO Work Phone: 03-22-2022 15:09-0500 Body surface area Derived from formula 2.01 m2 Referring Provider Unknown [facility] 250 DO Work Phone: 03-22-2022 15:09-0500 Body weight 88.45 kg Referring Provider Unknown [facility] 250 DO Work Phone: 03-22-2022 15:09-0500 Diastolic blood pressure 88 mm[Hg] Referring Provider Unknown [facility] 250 DO Work Phone: 03-22-2022 15:09-0500 Heart rate 92 /min Referring Provider Unknown [facility] 250 DO Work Phone: 03-22-2022 15:09-0500 Systolic blood pressure 160 mm[Hg] Referring Provider Unknown [facility] 250 DO Work Phone: Encounters Encounter Date Encounter Type Care Provider Facility Start: 05-21-2023 End: 05-22-2023 ambulatory Dickson Magallanes MD [facility]: [facility] Start: 05-07-2023 End: 05-08-2023 ambulatory Dickson Magallanes MD [facility]: [facility] Start: 04-23-2023 End: 04-24-2023 ambulatory Dickson Magallanes MD Facility: [facility] Start: 04-11-2023 End: 04-11-2023 ambulatory Magaly Jaquezirvingpanfilo Other [facility] Other Start: 04-11-2023 Telephone encounter Magaly Breen her [facility] Start: 04-05-2023 End: 04-05-2023 ambulatory Magaly Jefferson Other [facility] Other Start: 04-05-2023 Telephone encounter Magaly Breen her [facility] Start: 03-30-2023 End: 03-30-2023 ambulatory Magaly Rileyjulianapanfilo Other [facility] Other Start: 03-30-2023 Telephone encounter Magaly Breen her [facility] Start: 03-29-2023 End: 03-29-2023 ambulatory Magaly Rileyjulianapanfilo Other [facility] Other Start: 03-29-2023 Office outpatient visit 25 minutes Magaly Jaquezdavishossein [facility] Start: 02-02-2023 End: 02-02-2023 ambulatory Magaly Jonathanpanfilo Other [facility] Other Start: 02-02-2023 Telephone encounter Magaly Breen her [facility] Start: 09-28-[address] Cameron Olivares Facility: Start: 06-08-2022 ambulatory Facility:[facility] Start: 03-27-2022 Chart Update Referring Prov ider Unknown -[facility] 250 DO Work Phone: Start: 03-27-[address] Cameron Olivares Facility:[id number] Start: 03-22-2022 Patient encounter procedure Referring Provider Unknown [facility] 250 DO Work Phone: Start: 03-22-[address] Cameron Olivares Facility: Start: 02-23-[address] Cameron Olivares Facility:[facility] Start: 01-14-2021 End: 01-15-2021 ambulatory SKYE TAYLOR Facility: Start: 09-27-2020 End: 09-28-[address] DOCTOR TUCKER Facility: Start: 03-23-2020 End: 03-24-[address] KAYLA [...] Work Phone: Start: 03-27-2022 ECHO, Provider: AMERICA THOMASI [facility] 01,[id number], Status: Pen, Time: 8:45 AM ECHO, Provider: MEDHAT HHVI ULTR[facility] ,[id number], Status: Pen, Time: 8:45 AM [facility] 250 DO Work Phone: Immunizations Immunization Date Immunization Notes Care Provider Yina cooper 01-31-2023 influenza, high dose seasonal, preservative-free Magaly Jefferson Other [facility] Other 01-24-2022 influenza, injectabl e, quadrivalent, preservative free Referring Provider Unknown [facility] 250 DO Work Phone: 01-24-2022 Pfizer COVID-19 Vac Bivalent 30 MCG/0.3ML Intramuscular Suspension Referring Provider Unknown [place] [address] DO Work Phone: 08-23-2021 Moderna COVID-19 Vaccine 100 MCG/0.5ML Intramuscular Suspension Referring Provider Unknown [place] [address] DO Work Phone: 02-01-2021 Moderna COVID-19 Vaccine 100 MCG/0.5ML Intramuscular Suspension Referring Provider Unknown [place] [address] DO Work Phone: 01-17-2021 influenza, injectabl e, quadrivalent, preservative free Referring Provider Unknown [place] [address] DO Work Phone: 06-26-2020 Moderna COVID-19 Vaccine 100 MCG/0.5ML Intramuscular Suspension Referring Provider Unknown [place] [address] DO Work Phone: 05-29-2020 Moderna COVID-19 Vaccine 100 MCG/0.5ML Intramuscular Suspension Referring Provider Unknown [place] [address] DO Work Phone: 03-30-2020 influenza, injectabl e, quadrivalent, preservative free Referring Provider Unknown [place] [address] DO Work Phone: 04-01-2019 influenza, injectabl e, quadrivalent, contains preservative Referring Provider Unknown [place] [address] DO Work Phone: Payers Date Payer Category Payer Medicaid 2023 Unknown 1957 Self-pay [id number] 1955 Unknown [id number] 2.16.84 [id number] 1955 Unknown [id number] 2.16.84 [id number] 1955 Unknown [id number] 2.16.84 [id number] 1955 Unknown [id number] 2.16.8 [id number] 1955 Unknown [id number] 2.16. [id number] 1955 Unknown [id number] 2.16. [id number] 1955 Unknown [id number] 2.16. [id number] 1955 Unknown [id number] 2.16. [id number] 1955 Unknown [id number] 2.16. [id number] Medicaid [id number] Medicare [id number] 2.1 [id number] Social History Date Type Detail Facility Occasional alcohol use Occasional alcohol use [place] [address] DO Work Phone: Sex Assigned At Sex Assigned At Bir [facility] Other Medical Equipment Procedure Code Equipment Code Equipment Original Text Equi pment Identifier Dates OneTouch Delica Plus [id number] - Evaluation note 04-05-2023 Note Date & Type Note Facility 04-05-2023 Evaluation note Encounter Date Diagnosis Assessment Notes Mar, Arthritis of right hip (ICD-10 - M16.11) Mar, Sciatica of right side (ICD-10 - M54.31) Mar, Degeneration of intervertebral disc of lumbar region (ICD-10 - M51.36) [facility] Other Evaluation note 03-30-2023 Note Date & Type Note Facility 03-30-2023 Evaluation note Encounter Date Diagnosis Assessment Notes Mar, Type 2 diabetes mellitus with diabetic neuropathic arthropathy, without long-term current use of insulin (ICD-10 - E11.610) [facility] Other Evaluation note 03-29-2023 Note Date & [...] Arthritis of right hip (ICD-10 - M16.11) [facility] Other Evaluation note Note Date & Type Note Facility Evaluation note No Information Evgen Other History general Narrative - Reported Note Date & Type Note Facility History general Narrative - Reported Type Medical History DM (diabetes mellitus) Medical History Neuropathic pain Medical History HTN (hypertension) Surgical History appendectomy Surgical History eyes Surgical History hand surgery [facility] Other History of Present illness Narrative Note [...] will consider adding diuretics6. Follow-up in 6-month [place] [address] DO Work Phone: Summary Purpose Family History [...] disc of lumbar region (M51.36) Referral Organization [facility] Referring Provider First Name Magaly Referring Provider Last Name Ronny Referring Provider Specialty Nurse Pract katherin Referred Organization [facility] Referred Address [address], [place],[address] Referred Provider Specialty Pain Medicin e Referral Priority Routine Additional Source Comments INFORMATION SOURCE (unrecogn ized section and content) DATE CREATED AUTHOR 01/22/2021 [facility] DATE CREATED AUTHOR AUTHOR'S ORGANIZ ATION 03/29/2022 [facility] DATE CREATED AUTHOR AUTHOR'S ORGANIZ ATION 06/10/2022 Aditya Lynne [facility] DATE CREATED AUTHOR AUTHOR'S ORGANIZ ATION 09/29/2022 [facility] DATE CREATED AUTHOR AUTHOR'S ORGANIZ ATION 05/25/2023 [facility] (unrecognized sect ion and content) No [...] BE BASED ON THE PRIMARY CLINICAL RECORDS. [facility] [employer] provides no warranty or guarantee of the accuracy or completeness of information in this document.
[2023-06-04 09:58] VITALS: BP 139/87; PULSE 81; RESP 14; TEMP 36.2; O2SAT 98
[2023-06-04 10:13] LABS: Glucometer 108 mg/dL (74-106)
[2023-06-04 10:30] VITALS: BP 126/74; PULSE 84; RESP 18; O2SAT 97
--- NOTE | 2023-06-04 10:30 | W.PM.PROCNOT ---
Date of procedure: 06/04/23 Pre-op diagnosis: Sacroiliitis, right Post-op diagnosis: same as pre-op Procedure: Procedure: Right sacroiliac joint injection Medications: Bupivacaine 0.25% 3cc, kenalog 40mg After informed consent was obtained, the patient was brought to the medical procedure unit and placed in the prone position, when a timeout was completed verifying correct patient, procedure, site, positioning, implant, and/or special equipment.? The skin overlying the area was prepped and draped in standard sterile fashion using alcohol.? A 25-gauge needle was inserted towards the right sacroiliac joint under direct fluoroscopic imaging.? Needle tip was advanced until the joint was encountered.? We instilled a total of 3 mL of solution.? Postoperatively needles were removed.? The patient tolerated the procedure well without complication.? The patient reported reduction in pain symptoms postoperatively. Anesthesia: Local Surgeon: Dickson Magallanes Pathology: none sent Condition: stable Disposition: no change
[2023-06-04 10:31] VITALS: BP 127/75; PULSE 86; RESP 18; O2SAT 97
[2023-06-04] MEDS: IOHEXOL 240 MG/ML - 10 ML VIAL 12 MG INJ (10:32)
[2023-06-04] MEDS: BUPIVACAINE HCL 0.25% PF 25 MG/10 ML VIAL 2 ML INJ (10:32)
[2023-06-04] MEDS: LIDOCAINE HCL 2% PF 100 MG/5 ML VIAL INJ (10:33)
[2023-06-04] MEDS: TRIAMCINOLONE ACETONIDE 40 MG/ML VIAL INJ (10:33)
== END 2023-06-04 10:38 | disposition home or self-care (01) ==
PROVIDERS: PCP Nurse Practitioner Family; Visit Provider Anesthesiology
DX: M46.1 Sacroiliitis, not elsewhere classified (principal); Z79.84 Long term (current) use of oral hypoglycemic drugs
CPT/HCPCS: 36415; 64451; 82948; Q9966

== ENCOUNTER 2023-06-20 09:55 | Outpatient (OUT) | payer MEDICARE, MEDICAID, SELFPAY ==
--- NOTE | 2023-06-20 10:01 | PM.CN ---
Consult Note: HPI Data of Consult Patient: known to practice within the last 3 years Consult date: 05/07/23 Requesting Physician: Ashley Garnica NP Primary Care Provider: SIMON COOPER Consult Narrative Reason for consult: low back, right leg pain Narrative: 67yof who presents for assessment. persistent right low back and leg pain. mri recently completed, significant for multilevel moderate stenosis, as well as facet arthropathy in lower lumbar spine. continues to engage in a series of provider directed home exercises, which he has attempted for >6 weeks, with minimal benefit. has trialed gabapentin, celebrex for >6 weeks. denies adverse med side effects. recently underwent right L4-5 L5-S1 TFESI with 75% improvement ongoing and right SIJ injection with 90% improvement ongoing.Currently reporting pain 1/10 increasing to 2/10 at its worst. pain increased with activity, lifting, and moving in bed, describes pain as stiffness bruise pain. Noticing improvement in ambulation. cc:: CC: Ashley Garnica NP Review of Systems ROS Status of ROS 10 or more systems reviewed and unremarkable except as noted in history and below [facility] Medical History (Updated 05/09/23 @ 14:49 by Yamileth Mcdermott) Diabetes ?E11.9 - Type 2 diabetes mellitus without complications (ICD-10) Heart murmur ?R01.1 - Cardiac murmur, unspecified (ICD-10) Hypertension ?I10 - Essential (primary) hypertension (ICD-10) Surgical History S/P ORIF (open reduction internal fixation) fracture ?Z98.890 - Other specified postprocedural states (ICD-10) ?Z87.81 - Personal history of (healed) traumatic fracture (ICD-10) S/P evacuation of hematoma ?Z98.890 - Other specified postprocedural states (ICD-10) H/O eye surgery ?Z98.890 - Other specified postprocedural states (ICD-10) Hx of appendectomy ?Z90.49 - Acquired absence of other specified parts of digestive tract (ICD-10) Meds Home Medications and Allergies Home Medications ?Medication ?Instructions ?Recorded ?Confirmed ?Type amlodipine 5 mg tablet 5 mg PO DAILY 03/26/23 06/04/23 History gabapentin 400 mg capsule 400 mg PO BID 03/26/23 06/04/23 History glipizide 10 mg tablet 10 mg PO BID 03/26/23 06/04/23 History lisinopril 30 mg tablet 30 mg PO DAILY 03/26/23 06/04/23 History metformin 850 mg tablet 850 mg PO TID 03/26/23 06/04/23 History celecoxib 200 mg capsule (Celebrex) 200 mg PO BID PRN pain 04/23/23 06/04/23 History ibuprofen 800 mg tablet (IBU) 800 mg PO TID PRN pain 04/23/23 06/04/23 History methyl salicylate-menthol 30 %-10 1 applic topical BID PRN muscle 04/23/23 06/04/23 History % topical stick (Icy Hot) pain Allergies Allergy/AdvReac Type Severity Reaction Status Date / Time Penicillins Allergy Hives Verified 05/21/23 10:47 Exam Constitutional Documenting provider has reviewed patient's vital signs: yes Common normals: no apparent distress, oriented x3, healthy appearing, alert and well nourished General appearance: cooperative HENMT Common normals: normocephalic, hearing grossly normal bilaterally and moist oral mucous membranes Head and scalp: normocephalic Eye Common normals: PERRL Pupil: PERRL Neck & C-Spine Common normals: full ROM General: normal visual inspection Chest Common normals: inspection of chest normal Respiratory Common normals: normal respiratory effort, no retractions and no use of accessory muscles Back & Pelvis Lumbar spine/lower back: normal to inspection and lumbar ROM normal Sacroiliac joints: SI joints normal Other: negative facet loading sensation intact BLE, strength 5/5 in BLE no pain reproducable on exam Extremity Common normals: normal to inspection and full ROM Neuro Common normals: oriented x3, CN's II-XII intact bilaterally, moves all extremities, no focal motor deficits, no sensory deficits noted and deep tendon reflexes 2+ bilaterally Sensorium/orientation: alert Motor exam: strength 5/5 throughout and no movement abnormalities noted Psych Common normals: mental status grossly normal, thought process normal, cooperative, affect normal, speech normal and activity/motor behavior normal Speech: normal speech Thought process: normal thought process Results Imaging Lumbar MRI: Radiologist's impression: 04/30/23 Lumbar MRI 12-L1: No significant disc/facet abnormality, spinal stenosis, or foraminal stenosis. L1-L2: Disc desiccation. Posterior disc bulging with no central or foraminal stenosis L2-L3: Disc desiccation. Posterior left foraminal disc protrusion. No central canal or right foraminal stenosis. Mild narrowing of the left neural foramen best seen on sagittal image 5 L3-L4: Disc desiccation and disc space narrowing. Posterior central annular tear. Broad-based disc/osteophyte complex extending posteriorly up to 3 mm. Mild trefoil central canal stenosis, mild left foraminal stenosis L4-L5: Mild disc desiccation. Posterior broad-based disc protrusion with ligamentum flavum and facet hypertrophy. Moderate trefoil narrowing of the central canal . Moderate right foraminal stenosis. No left foraminal stenosis . L5-S1: Right foraminal disc protrusion. Moderate ligamentum flavum hypertrophy. Moderate trefoil narrowing the central canal. Mild right foraminal stenosis. Left foraminal stenosis Additional Findings Additional findings: If on a controlled substance or opioids, I have checked an [place] report on this patient and there are no aberrancies noted in the prescribing history.??If on a controlled substance or opioid a drug screen was completed and reviewed within the last year, and if there has not been a drug screen completed we ordered one today to monitor higher risk, state monitored pain medication use. As part of providing excellent, safe, comprehensive care, the following was completed at our patient's visit: 1. A medication reconciliation and review to ensure accurate knowledge of current/active medications, including asking our patients to inform us about any ijmz-mke-nodzuhp medications or herbal remedies/nutritional supplements/alternative remedies. 2. A review to specifically ensure our patients have had annual screening for screening for depression, screening for tobacco use, and screening for unhealthy alcohol use. For concerning screenings had a discussion with the patient, provided patient education, and recommended follow-up with primary care provider when appropriate. If patient noted with a risk of falling, they received education on strength, gait, and balance training to prevent future risk of falling. Assessment and Plan Assessment and Plan (1) Lumbar stenosis with neurogenic claudication: (2) Sacroiliac joint dysfunction of right side: (3) Lumbar spondylosis: Plan doing very well with celebrex 200mg BID PRN without side effects continue gabapentin 400mg BID through prescribing practitioner continue HEP as tolerated f/u 3 months, sooner if needed
--- OUTSIDE RECORDS SUMMARY | 2023-06-20 10:13 | XMS_ITS | CCD ---
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 PCP Primary Care Unavailable Roderickoulsandy, Dr. Griffin Referring Unavaila ble Traboulssi, Dr. [...] Translations: [Penicillins] Allergy to drug (finding) Unknown -[facility] 250 DO Work Phone: (6 sources) Penicillin G Drug Allergy tachycardia [facility] Other Medications Current Medications Medication Drug Class(es) Dates Sig (Normalized) Sig (Original) amLODIPine 5 mg oral tablet (6 sources) Dihydropyridine Calcium Channel Gonzalez Start: 02-01-20 take 1 tablet by mouth every twenty-four hours amLODIPine Besylate 5 MG 1 tablet Orally Once a day for 90 days Jan, Active FreeStyle Roland 14 Day [place] - (4 sources) Start: 04-02-19 FreeStyle Roland 14 Day [place] - as directed SQ As Directed for [...] 18-Jul-2021 Active take 1 capsule by mo njravindra every twelve hours Gabapentin 400 MG 1 [...] Historical Records Officeon 06-09-2022 Historical Records Office [id number]:[id number] Normal [facility] Echocardiogramon 03-27-[address], [place] [address] TRANSTHORACIC ECHOCARDIOGRAM REPORT Patient Name: IDALMIS ARON Mcmahon Physician: [id number] Cameron Olivares MD Study Date: 03/27/2022 Referring Physician: CAMERON OLIVARES MRN/PID: [id number] PCP: Accession/Order#: [id number] Department Location: [facility] Date of : 1955 Fellow: Gender: M Nurse: Admit Date: Proof Press Operator: Winifred Suresh RD, [facility] Height: 170.18 cm CC Report to: Weight: 88.45 kg Study Type: Echocardiogram BSA: 2.00 m2 Blood Pressure: 144 /80 mmHg Diagnosis/ICD: J25-Ffjuincjz (primary) hypertension; R01.1-Cardiac murmur, unspecified Indication: Abnormal EKG, Diabetes, Former Smoker, Obesity Procedure/CPT: Echo Complete w Full Doppler-[id number] Study Detail: The following Echo studies were [...] mmHg PIEDV: 2.28 m/s PADP: 23.8 mmHg [id number] Cameron Olivarse MD Electronically signed on 03/27/2022 at 2:04:12 PM Final Normal [facility] Tobacco Screening.on 023 Adult depression screening assessment No [facility] 250 DO Work Phone: Fall risk assessment c) Not medically indicated [facility] 250 DO Work Phone: Tobacco use status [facility] b) No [facility] Work Phone: GLYCOHEMOGLOBIN A1Con 2020 ADA RECOMMENDATION ADA THERAPEUTIC TARGET 6.0 - 7.0 ACTION SUGGESTED > 7.0 Normal [facility] Comment on above: Performed By: #### A 1C #### [facility] [address] [place] [address] Dr. Fanta Evans Glucose [Mass/Vol] 134 mg/dL Normal [facility] Comment on above: Performed By: #### A 1C #### [facility] [address] [place] [address] Dr. Fanta Evans HbA1c (Bld) [Mass fraction] 6.3 % Critically high <=6.0 [facility] Comment on above: Performed By: #### A 1C #### [facility] [address] [place] [address] Dr. Fanta Evans GLYCOHEMOGLOBIN A1Con 2020 ADA RECOMMENDATION ADA THERAPEUTIC TARGET 6.0 - 7.0 ACTION SUGGESTED > 7.0 Normal [facility] Comment on above: Performed By: #### A 1C #### [facility] [address] [place] [address] Sandra Marroquin Glucose [Mass/Vol] 148 mg/dL Normal [facility] Comment on above: Performed By: #### A 1C #### [facility] [address] [place] [address] Sandra Marroquin HbA1c (Bld) [Mass fraction] 6.8 % Critically high <=6.0 [facility] Comment on above: Performed By: #### A 1C #### [facility] [address] [place] [address] Sandra Santillanen GLYCOHEMOGLOBIN A1Con 2020 Glucose [Mass/Vol] 140 mg/dL Normal [facility] Comment on above: Performed By: #### A 1C #### [facility] [address] [place] [address] Sandra Santillanen HbA1c (Bld) [Mass fraction] 6.5 % Critically high <=6.0 [facility] Comment on above: Performed By: #### A 1C #### [facility] [address] [place] [address] Sandra Cara LIPID PROFILEon 03-23-2020 CHOL-HDL RATIO NORM SEE BELOW Normal [facility] Comment on above: Result Comment: 3.3 - 4.4 LOW RISK 4.4 - 7.1 AVERAGE RISK 7.1 - 11.0 MODERATE RISK >11.0 HIGH RISK Performed By: #### L IPID #### [facility] [address], [place] [address] Sandra Cara Cholesterol [Mass/Vol] 183 mg/dL Normal <=200 [facility] Comment on above: Performed By: #### L IPID #### [facility] [address], [place] [address] Sandra Cara Cholesterol in HDL [Mass/Vol] 54 mg/dL Normal [facility] Comment on above: Performed By: #### L IPID #### [facility] [address], [place] [address] Sandra Cara Cholesterol in LDL [Mass/Vol] 116.0 mg/dL Normal [facility] Comment on above: Performed By: #### L IPID #### [facility] [address], [place] [address] Sandra Cara Cholesterol.total/Chol esterol in HDL [Mass ratio] 3.4 {ratio} Normal [facility] Comment on above: Performed By: #### L IPID #### [facility] [address], [place] [address] Sandra Cara HDL NORMAL > or = 60 mg/dl - LOW CARDIOVASCULAR RISK <40 mg/dl - HIGH CARDIOVASCULAR RISK Normal [facility] Comment on above: Performed By: #### L IPID #### [facility] [address] [place], [place] [address] Sandra Cara LDL CALC NORMAL SEE BELOW Normal [facility] Comment on above: Result Comment: <100 mg/dl OPTIMAL 100 - 129 mg/dl NEAR OR ABOVE OPTIMAL 130 - 159 mg/dl BORDERLINE HIGH 160 - 189 mg/dl HIGH >190 mg/dl VERY HIGH Performed By: #### L IPID #### [facility] [address] [place], [place] [address] Sandra Cara Triglyceride [Mass/Vol] 65 mg/dL Normal <=150 [facility] Comment on above: Performed By: #### L IPID #### [facility] [address] [place], [place] [address] Sandra Cara VLDL CALC 13.0 mg/dL Normal [facility] Comment on above: Performed By: #### L IPID #### [facility] [address] [place] [address] Sandra Marroquin Vital Signs Date Time Vital Sign Value Performing Clinician Facility 03-29-2023 11:30-0500 Body height 172.72 cm Magaly Jefferson Other [facility] Other 03-29-2023 11:30-0500 Body mass index (BMI) [Ratio] 27.52 kg/m2 Magaly Jefferson Other [facility] Other 03-29-2023 11:30-0500 Body weight 82.1 kg Magaly Jefferson Other [facility] Other 03-29-2023 11:30-0500 Diastolic blood pressure 80 mm[Hg] Magaly Jefferson Other [facility] Other 03-29-2023 11:30-0500 SaO2% (BldA) [Mass fraction] 98 % Magaly Jefferson Other [facility] Other 03-29-2023 11:30-0500 Systolic blood pressure 136 mm[Hg] Magaly Jefferson Other [facility] Other 03-27-2022 15:28-0500 65 1 Referring Provider Unknown [facility] 250 DO Work Phone: Comment on above: [id number] 03-22-2022 15:39-0500 Diastolic blood pressure 82 mm[Hg] Referring Provider Unknown [facility] 250 DO Work Phone: 03-22-2022 15:39-0500 Systolic blood pressure 137 mm[Hg] Referring Provider Unknown [facility] 250 DO Work Phone: 03-22-2022 15:10-0500 Diastolic blood pressure 86 mm[Hg] Referring Provider Unknown [facility] DO Work Phone: 03-22-2022 15:10-0500 Systolic blood pressure 158 mm[Hg] Referring Provider Unknown [facility] DO Work Phone: 03-22-2022 15:09-0500 Body height 171.45 cm Referring Provider Unknown [facility] DO Work Phone: 03-22-2022 15:09-0500 Body mass index (BMI) [Ratio] 30.09 kg/m2 Referring Provider Unknown [facility] 250 DO Work Phone: 03-22-2022 15:09-0500 Body surface area Derived from formula 2.01 m2 Referring Provider Unknown [facility] 250 DO Work Phone: 03-22-2022 15:09-0500 Body weight 88.45 kg Referring Provider Unknown [facility] DO Work Phone: 03-22-2022 15:09-0500 Diastolic blood pressure 88 mm[Hg] Referring Provider Unknown [facility] DO Work Phone: 03-22-2022 15:09-0500 Heart rate 92 /min Referring Provider Unknown [facility] DO Work Phone: 03-22-2022 15:09-0500 Systolic blood pressure 160 mm[Hg] Referring Provider Unknown [facility] 250 DO Work Phone: Encounters Encounter Date Encounter Type Care Provider Facility Start: 06-04-2023 End: 06-05-2023 ambulatory Dickson Magallanes MD Facility: [facility] Start: 05-21-2023 End: 05-22-2023 ambulatory Dickson Magallanes MD Facility: [facility] Start: 05-07-2023 End: 05-08-2023 ambulatory Dickson Magallanes MD Facility:[facility] Start: 04-23-2023 End: 04-24-2023 ambulatory Dickson Magallanes MD Facility:[facility] Start: 04-11-2023 End: 04-11-2023 ambulatory Magaly Jefferson Other [facility] Other Start: 04-11-2023 Telephone encounter Magaly Breen her [facility] Start: 04-05-2023 End: 04-05-2023 ambulatory Magaly Rileyjulianapanfilo Other [facility] Other Start: 04-05-2023 Telephone encounter Magaly Breen her [facility] Start: 03-30-2023 End: 03-30-2023 ambulatory Magaly Ronny Other [facility] Other Start: 03-30-2023 Telephone encounter Magaly Breen her [facility] Start: 03-29-2023 End: 03-29-2023 ambulatory Magaly Jonathanpanfilo Other [facility] Other Start: 03-29-2023 Office outpatient visit 25 minutes Magaly Ronny [facility] Start: 02-02-2023 End: 02-02-2023 ambulatory Magaly Jaquezdavishossein Other [facility] Other Start: 02-02-2023 Telephone encounter Magaly Breen her [facility] Start: 09-28-[address] Cameron Olivares Facility: Start: 06-08-2022 ambulatory Facility:[facility] Start: 03-27-2022 Chart Update Referring Prov ider Unknown -[facility] 250 DO Work Phone: Start: 03-27-[address] Cameron Olivares Facility:[id number] Start: 03-22-2022 Patient encounter procedure Referring Provider Unknown [place] [address] DO Work Phone: Start: 03-22-[address] Cameron Olivares Facility:[id number] Start: 02-23-[address] Cameron Olivares Facility:[facility] Start: 01-14-2021 End: 01-15-2021 ambulatory SKYE TAYLOR [...] Cameron Olivares, Status: Pen, Time: 2:00 PM [place] [address] DO Work Phone: Start: 03-27-2022 ECHO, Provider: AMERICA QUIROZ [facility] ,[id number], Status: Pen, Time: 8:45 AM ECHO, Provider: MEDHAT [facility] ,[id number], Status: Pen, Time: 8:45 AM [place] [address] DO Work Phone: Immunizations Immunization Date Immunization Notes Care Provider Yina cooper 01-31-2023 influenza, high dose seasonal, preservative-free Magaly Jefferson Other [facility] Other 01-24-2022 influenza, injectabl e, quadrivalent, preservative free Referring Provider Unknown [place] [address] DO Work Phone: 01-24-2022 Pfizer COVID-19 Vac Bivalent 30 MCG/0.3ML Intramuscular Suspension Referring Provider Unknown [place] [address] DO Work Phone: 08-23-2021 Moderna COVID-19 Vaccine 100 MCG/0.5ML Intramuscular Suspension Referring Provider Unknown [place] [address] DO Work Phone: 02-01-2021 Moderna COVID-19 Vaccine 100 MCG/0.5ML Intramuscular Suspension Referring Provider Unknown [place] [address] DO Work Phone: 01-17-2021 influenza, injectabl e, quadrivalent, preservative free Referring Provider Unknown [place] [address] DO Work Phone: 06-26-2020 Moderna COVID-19 Vaccine 100 MCG/0.5ML Intramuscular Suspension Referring Provider Unknown [place] [address] DO Work Phone: 05-29-2020 Moderna COVID-19 Vaccine 100 MCG/0.5ML Intramuscular Suspension Referring Provider Unknown [place] [address] DO Work Phone: 03-30-2020 influenza, injectabl e, quadrivalent, preservative free Referring Provider Unknown [place] [address] DO Work Phone: 04-01-2019 influenza, injectabl e, quadrivalent, contains preservative Referring Provider Unknown [place] [address] DO Work Phone: Payers Date Payer Category Payer Medicaid 2023 Unknown 1957 Self-pay [id number] 1955 Unknown [id number] 2.16.84 [id number] 1955 Unknown [id number] 2.16.84 [id number] 1955 Unknown [id number] 2.16.84 [id number] 1955 Unknown [id number] 2.16.8 [id number] 1955 Unknown [id number] 2.16. [id number] 1955 Unknown [id number] 2.16. [id number] 1955 Unknown [id number] 2.16. [id number] 1955 Unknown [id number] 2.16. [id number] 1955 Unknown [id number] 2.16. [id number] 1955 Unknown [id number] 2.16. [id number] Medicaid [id number] Medicare [id number] 2.1 [id number] Social History Date Type Detail Facility Occasional alcohol use Occasional alcohol use [place] [address] DO Work Phone: Sex Assigned At Sex Assigned At Bir [facility] Other Medical Equipment Procedure Code Equipment Code Equipment Original Text Equi pment Identifier Dates OneTouch Delica Plus [id number] - Evaluation note 04-05-2023 Note Date & Type Note Facility 04-05-2023 Evaluation note Encounter Date Diagnosis Assessment Notes Mar, Arthritis of right hip (ICD-10 - M16.11) Mar, Sciatica of right side (ICD-10 - M54.31) Mar, Degeneration of intervertebral disc of lumbar region (ICD-10 - M51.36) [facility] [employer] Other Evaluation note 03-30-2023 Note Date & Type Note Facility 03-30-2023 Evaluation note Encounter Date Diagnosis Assessment Notes Mar, Type 2 diabetes mellitus with diabetic neuropathic arthropathy, without long-term current use of insulin (ICD-10 - E11.610) [facility] Other Evaluation note 03-29-2023 Note Date & [...] Arthritis of right hip (ICD-10 - M16.11) [facility] Other Evaluation note Note Date & Type Note Facility Evaluation note No Information [employer] Other History general Narrative - Reported Note Date & Type Note Facility History general Narrative - Reported Type Medical History DM (diabetes mellitus) Medical History Neuropathic pain Medical History HTN (hypertension) Surgical History appendectomy Surgical History eyes Surgical History hand surgery [facility] Other History of Present illness Narrative Note [...] will consider adding diuretics6. Follow-up in 6-month [place] [address] DO Work Phone: Summary Purpose Family History [...] Advanced Directives Records Found Chief Complaint IDALMIS HATHAWAY is being seen for Brandon- HTN. Reason for Referral Reason evaluate Diagnosis 1 Arthritis of right h ip (M16.11) Diagnosis 2 Sciatica of right si de (M54.31) Diagnosis 3 Degeneration of inte rvertebral disc of lumbar region (M51.36) Referral Organization [facility] Referring Provider First Name Magaly Referring Provider Last Name Jonathanpanfilo Referring Provider Specialty Nurse Annia pandey Ref[facility] Referred Address [address] [facility],[place], [place],[address] Referred Provider Specialty Pain Medicin e Referral Priority Routine Additional Source Comments INFORMATION SOURCE (unrecogn ized section and content) DATE CREATED AUTHOR 01/22/2021 [facility] DATE CREATED AUTHOR AUTHOR'S ORGANIZ ATION 03/29/2022 [facility] DATE CREATED AUTHOR AUTHOR'S ORGANIZ ATION 06/10/2022 [facility] DATE CREATED AUTHOR AUTHOR'S ORGANIZ ATION 09/29/2022 [facility] DATE CREATED AUTHOR AUTHOR'S ORGANIZ ATION 06/09/2023 [facility] (unrecognized sect ion and content) No [...] BE BASED ON THE PRIMARY CLINICAL RECORDS. [facility] [employer] provides no warranty or guarantee of the accuracy or completeness of information in this document.
== END 2023-06-20 09:56 | disposition home or self-care (01) ==
LOC: PM 09:55
PROVIDERS: PCP Nurse Practitioner Family; Visit Provider Nurse Practitioner
DX: M48.062 Spinal stenosis, lumbar region with neurogenic claudication (principal); M53.3 Sacrococcygeal disorders, not elsewhere classified; M47.816 Spondylosis without myelopathy or radiculopathy, lumbar region
CPT/HCPCS: G0463

== ENCOUNTER 2023-06-22 10:08 | Outpatient (OUT) | payer MEDICARE, MEDICAID, SELFPAY ==
--- OUTSIDE RECORDS SUMMARY | 2023-06-22 10:30 | XMS_ITS | CCD ---
Author Organization [facility] Care Team Providers Care Commercial Makeup Artist Name Role Phone SKYE TAYLOR Attending Unavailable [...] Translations: [Penicillins] Allergy to drug (finding) Unknown -[facility] 250 DO Work Phone: (6 sources) Penicillin G Drug Allergy tachycardia [facility] Other Medications Current Medications Medication Drug Class(es) Dates Sig (Normalized) Sig (Original) amLODIPine 5 mg oral tablet (7 sources) Dihydropyridine Calcium Channel Gonzalez Start: 06-20-2023 take 5 mg by mouth once daily Amlodipine Active 5 MG PO Daily June 20, 2023 12:00am Start: 01-31-2023 take 1 tablet by glo th every twenty-four hours amLODIPine Besylate 5 MG 1 tablet Orally Once a day for 90 days Jan, Active celecoxib 200 mg oral capsule (1 source) Nonsteroidal Anti-inflammatory Drug Start: 06-21-2023 take 200 mg by mouth twice daily Celecoxib Active 200 MG PO Twice daily June 21, 2023 12:00am FreeStyle Roland 14 Day Redby - (4 sources) Start: 04-02-2023 FreeStyle Libr e 14 Day Redby - as directed SQ As Directed for 30 days Mar, Active Freestyle Roland 14 day sensor (4 sources) Start: 04-02-2023 Freestyle Libr e 14 day sensor 1 SQ As Directed for 30 days Mar, Active gabapentin 400 mg oral capsule (12 sources) Anti-epileptic Agent Start: 05-14-2023 End: 05-14-2023 take 400 mg by mouth twice daily Gabapentin Active 400 MG PO Twice daily 180 May 14, 2023 12:47pm Start: 01-24-2022 take 1 capsule by mo ut once daily at bedtime Gabapentin 400 MG [...] days Active glipiZIDE 10 mg oral tablet (10 sources) Sulfonylurea Start: 05-14-2023 End: 05-14-2023 take 10 mg by mouth twice daily Glipizide Active 10 MG PO Twice daily 180 90 May 14, 2023 12:47pm Start: 12-19-2021 take 1 tablet by glo th twice daily before mealtime glipiZIDE 10 MG Oral Tablet TAKE 1 TABLET BY MOUTH TWICE DAILY BEFORE MEAL(S) Quantity: 180 Refills: 0 Ordered: 19-Dec-2021 DO Start : 19-Dec-2021 Active lisinopril 30 mg oral tablet (10 sources) Angiotensin Converting Enzyme Inhibitor Start: 05-02-2023 End: 05-02-2023 take 30 mg by mouth once daily Lisinopril Active 30 MG PO Daily 90 90 May 02, 2023 10:34am Start: 12-19-2021 take 1 tablet by glo th once daily Lisinopril 30 MG Oral Tablet TAKE 1 TABLET BY MOUTH ONCE DAILY Quantity: 90 Refills: 0 Ordered: 19-Dec-2021 DO Start : 19-Dec-2021 Active metFORMIN hydrochloride 850 mg oral tablet (10 sources) Biguanide Start: 05-14-2023 take 850 mg by mouth three times daily Metformin Active 850 MG PO Three times daily May 14, 2023 1:00am Start: 05-14-2023 End: 06-20-2023 take 850 mg by mouth once at mealtime Metformin Discontinued 850 MG PO 3x/Day with meals 270 90 May 14, 2023 1:00am June 20, 2023 4:17pm Start: 12-19-2021 take 1 tablet by glo th three times daily at dinner metFORMIN HCl - 850 MG Oral Tablet TAKE 1 TABLET BY MOUTH THREE TIMES DAILY WITH MORNING MEAL AND WITH EVENING MEAL Quantity: 270 Refills: 0 Ordered: 19-Dec-2021 DO Start : 19-Dec-2021 Active methocarbamol 750 mg oral tablet (6 sources) Muscle Relaxant Start: 06-20-2023 take 750 mg by mouth once daily at bedtime Methocarbamol Active 750 MG PO Daily at bedtime June 20, 2023 12:00am Methocarbamol 75 0 MG Oral for 6 Days Active methylPREDNISolone 4 mg oral tablet (5 sources) Corticosteroid Start: 03-29-2023 methylPREDNISolone 4 MG as directed Orally daily for 6 days Mar, Active naproxen 500 mg oral tablet (6 sources) Nonsteroidal Anti-inflammatory Drug Start: 06-20-2023 take 500 mg by mouth every twelve hours Naproxen Active 500 MG PO Every 12 hours June 20, 2023 12:00am take 1 tablet by glo th every twelve hours at mealtime as needed [...] 3 Ordered: 22-Mar-2022 Cameron Olivares MD Active SITagliptin 25 mg oral tablet (2 [...] neuropathic arthropathy] Chronic Diabetes mellitus without complication (13 sources) Type 2 diabetes mellitus without complications; Translations: [Diabetes mellitus] Onset: 01-14-2021 Chronic Essential hypertension (18 sources) Essential (primary) hypertension; Translations: [Benign essential hypertension] Onset: 04-19-2020 06-20-2023 Chronic Genitourinary symptoms and ill-defined conditions (2 sources) Increased frequency of urination; Translations: [Frequency of micturition] 06-21-2023 Episodic Heart valve disorders (3 sources) Heart murmur; Translations: [Undiagnosed cardiac murmurs] Onset: 03-27-2022 Episodic Osteoarthritis (7 sources) Arthritis of right hip; Translations: [Unilateral primary osteoarthritis, right hip] Chronic Other connective tissue disease (7 sources) Neuropathic pain; Translations: [Neuralgia and neuritis, unspecified] 06-20-2023 Episodic Other nervous system disorders (7 sources) Neuropathy; Translations: [Polyneuropathy, unspecified] 06-20-2023 Chronic Other nutritional; endocrine; and metabolic disorders (2 sources) Obesity; Translations: [Obesity, unspecified] Chronic Other screening for suspected conditions (not mental disorders or infectious disease) (2 sources) Electrocardiogram abnormal; Translations: [Nonspecific abnormal electrocardiogram [ECG] [EKG]] Episodic Residual codes; unclassified (1 source) Memory impairment; Translations: [Other amnesia] 06-21-2023 Episodic Residual codes; unclassified (1 source) Other amnesia; Translations: [Memory loss] 06-21-2023 Episodic Screening and history of mental health and substance abuse codes (2 sources) Ex-smoker; Translations: [Personal history of tobacco use] Episodic Spondylosis; intervertebral disc disorders; other back problems (8 sources) Degeneration of lumbar intervertebral disc; Translations: [Other intervertebral disc degeneration, lumbar region] Chronic Spondylosis; intervertebral disc disorders; other back problems (8 sources) Sciatica; Translations: [Sciatica, right side] Episodic Results Test Name Value Interpretation Reference Range Facility Historical Records Officeon 06-09-2022 Historical Records Office [id number] Normal [facility] Echocardiogramon 03-27-[address], [address] [place] [address] TRANSTHORACIC ECHOCARDIOGRAM REPORT Patient Name: IDALMIS HATHAWAY Salome Physician: [id number] Cameron Olivares MD Study Date: 03/27/2022 Referring Physician: CAMERON OLIVARES MRN/PID: [id number] PCP: Accession/Order#: [id number] Department Location: [facility] Date of : 1955 Fellow: Gender: M Nurse: Admit Date: Applied Biology Professor: Winifred Suresh [facility] Height: 170.18 cm CC Report to: Weight: 88.45 kg Study Type: Echocardiogram BSA: 2.00 m2 Blood Pressure: 144 /80 mmHg Diagnosis/ICD: E74-Javcuschm (primary) hypertension; R01.1-Cardiac murmur, unspecified Indication: Abnormal EKG, Diabetes, Former Smoker, Obesity Procedure/CPT: Echo Complete w Full [id number] Study Detail: The following Echo studies were [...] mmHg PIEDV: 2.28 m/s PADP: 23.8 mmHg [id number] Cameron Olivares MD Electronically signed on 03/27/2022 at 2:04:12 PM Final Normal [facility] Tobacco Screening.on 023 Adult depression screening assessment No [facility] 250 DO Work Phone: Fall risk assessment c) Not medically indicated [facility] 250 DO Work Phone: Tobacco use status [facility] b) No [facility] 250 DO Work Phone: GLYCOHEMOGLOBIN A1Con 2020 ADA RECOMMENDATION ADA THERAPEUTIC TARGET 6.0 - 7.0 ACTION SUGGESTED > 7.0 Normal [facility] Comment on above: Performed By: #### A 1C #### [facility] [address] [place] [address] Dr. Fanta Evans Glucose [Mass/Vol] 134 mg/dL Normal [facility] Comment on above: Performed By: #### A 1C #### [facility] [address] [address] [address] Fanta Evans HbA1c (Bld) [Mass fraction] 6.3 % Critically high <=6.0 [facility] Comment on above: Performed By: #### A 1C #### [facility] [address] [address] [address] Fanta Evans GLYCOHEMOGLOBIN A1Con 2020 ADA RECOMMENDATION ADA THERAPEUTIC TARGET 6.0 - 7.0 ACTION SUGGESTED > 7.0 Normal [facility] Comment on above: Performed By: #### A 1C #### [facility] [address] [place] [address] Sandra Cara Glucose [Mass/Vol] 148 mg/dL Normal [facility] Comment on above: Performed By: #### A 1C #### [facility] [address] [place] [address] Sandra Cara HbA1c (Bld) [Mass fraction] 6.8 % Critically high <=6.0 [facility] Comment on above: Performed By: #### A 1C #### [facility] [address] [place] [address] Sandra Marroquin GLYCOHEMOGLOBIN A1Con 2020 Glucose [Mass/Vol] 140 mg/dL Normal [facility] Comment on above: Performed By: #### A 1C #### [facility] [address] [place] [address] Sandra Cara HbA1c (Bld) [Mass fraction] 6.5 % Critically high <=6.0 [facility] Comment on above: Performed By: #### A 1C #### [facility] [address] [place] [address] Sandra Marroquin LIPID PROFILEon 03-23-2020 CHOL-HDL RATIO NORM SEE BELOW Normal [facility] Comment on above: Result Comment: 3.3 - 4.4 LOW RISK 4.4 - 7.1 AVERAGE RISK 7.1 - 11.0 MODERATE RISK >11.0 HIGH RISK Performed By: #### L IPID #### [facility] [address], [place] [address] Sandra Cara Cholesterol [Mass/Vol] 183 mg/dL Normal <=200 [facility] Comment on above: Performed By: #### L IPID #### [facility] [address], [place] [address] Sandra Cara Cholesterol in HDL [Mass/Vol] 54 mg/dL Normal [facility] Comment on above: Performed By: #### L IPID #### [facility] [address], [place] [address] Sandra Cara Cholesterol in LDL [Mass/Vol] 116.0 mg/dL Normal [facility] Comment on above: Performed By: #### L IPID #### [facility] [address], [place] [address] Sandra Cara Cholesterol.total/Chol esterol in HDL [Mass ratio] 3.4 {ratio} Normal [facility] Comment on above: Performed By: #### L IPID #### [facility] [address], [place] [address] Sandra Cara HDL NORMAL > or = 60 mg/dl - LOW CARDIOVASCULAR RISK <40 mg/dl - HIGH CARDIOVASCULAR RISK Normal [facility] Comment on above: Performed By: #### L IPID #### [facility] [address], [place] [address] Sandra Cara LDL CALC NORMAL SEE BELOW Normal [facility] Comment on above: Result Comment: <100 mg/dl OPTIMAL 100 - 129 mg/dl NEAR OR ABOVE OPTIMAL 130 - 159 mg/dl BORDERLINE HIGH 160 - 189 mg/dl HIGH >190 mg/dl VERY HIGH Performed By: #### L IPID #### [facility] [address], [place] [address] Sandra Cara Triglyceride [Mass/Vol] 65 mg/dL Normal <=150 [facility] Comment on above: Performed By: #### L IPID #### [facility] [address], [place] [address] Sandra Cara VLDL CALC 13.0 mg/dL Normal [facility] Comment on above: Performed By: #### L IPID #### [facility] [address] [address] Sandra Marroquin Vital Signs Date Time Vital Sign Value Performing Clinician Facility 06-21-2023 15:19-0400 Body height 172.72 cm [facility] 06-21-2023 15:19-0400 Body mass index (BMI) [Ratio] 28.5 kg/m2 [facility] 06-21-2023 15:19-0400 Body weight 85.27 kg [facility] 06-21-2023 15:19-0400 Diastolic blood pressure 72 mm[Hg] [facility] 06-21-2023 15:19-0400 Heart rate 83 /min [facility] 06-21-2023 15:19-0400 SaO2% (BldA) [Mass fraction] 97 % [facility] 06-21-2023 15:19-0400 Systolic blood pressure 120 mm[Hg] [facility] 03-29-2023 11:30-0500 Body height 172.72 cm Magaly Jefferson Other [facility] 03-29-2023 11:30-0500 Body mass index (BMI) [Ratio] 27.52 kg/m2 Magaly Jefferson Other [facility] Other 03-29-2023 11:30-0500 Body weight 82.1 kg Magaly Jefferson Other [facility] 03-29-2023 11:30-0500 Diastolic blood pressure 80 mm[Hg] Magaly Jefferson Other [facility] 03-29-2023 11:30-0500 SaO2% (BldA) [Mass fraction] 98 % Magaly Jefferson Other [facility] Other 03-29-2023 11:30-0500 Systolic blood pressure 136 mm[Hg] Magaly Jefferson Other [facility] 03-27-2022 15:28-0500 65 1 Referring Provider Unknown [facility] 250 DO Work Phone: Comment on above: [id number] 03-22-2022 15:39-0500 Diastolic blood pressure 82 mm[Hg] Referring Provider Unknown [facility] 250 DO Work Phone: 03-22-2022 15:39-0500 Systolic blood pressure 137 mm[Hg] Referring Provider Unknown [facility] 250 DO Work Phone: 03-22-2022 15:10-0500 Diastolic blood pressure 86 mm[Hg] Referring Provider Unknown [facility] 250 DO Work Phone: 03-22-2022 15:10-0500 Systolic blood pressure 158 mm[Hg] Referring Provider Unknown [facility] 250 DO Work Phone: 03-22-2022 15:09-0500 Body height 171.45 cm Referring Provider Unknown [facility] 250 DO Work Phone: 03-22-2022 15:09-0500 Body mass index (BMI) [Ratio] 30.09 kg/m2 Referring Provider Unknown [facility] 250 DO Work Phone: 03-22-2022 15:09-0500 Body surface area Derived from formula 2.01 m2 Referring Provider Unknown [facility] [place] [facility] 250 DO Work Phone: 03-22-2022 15:09-0500 Body weight 88.45 kg Referring Provider Unknown [facility] 250 DO Work Phone: 03-22-2022 15:09-0500 Diastolic blood pressure 88 mm[Hg] Referring Provider Unknown [facility] 250 DO Work Phone: 03-22-2022 15:09-0500 Heart rate 92 /min Referring Provider Unknown [facility] 250 DO Work Phone: 03-22-2022 15:09-0500 Systolic blood pressure 160 mm[Hg] Referring Provider Unknown -[facility] 250 DO Work Phone: Encounters Encounter Date Encounter Type Care Provider Facility Start: 06-21-2023 End: 06-21-2023 ambulatory [facility] Work Phone: Start: 06-21-2023 End: 06-21-2023 Patient encounter procedure [facility] Phys[facility] Work Phone: Start: 06-04-2023 End: 06-05-2023 ambulatory Dickson Magallanes MD Facility: [facility] Start: 05-21-2023 End: 05-22-2023 ambulatory Dickson Magallanes MD Facility: [facility] Start: 05-14-2023 Non-patient / Non-visit [facility] Physician [facility] Work Phone: Start: 05-07-2023 End: 05-08-2023 ambulatory Dickson Magallanes MD Facility: [facility] Start: 05-02-2023 Non-patient / Non-visit [facility] Work Phone: Start: 04-23-2023 End: 04-24-2023 ambulatory Dickson Magallanes MD Facility: [facility] Start: 04-11-2023 End: 04-11-2023 ambulatory Magaly Jefferson Other [facility] Other Start: 04-11-2023 Telephone encounter Magaly Breen her [facility] Start: 04-05-2023 End: 04-05-2023 ambulatory Magaly Jefferson Other [facility] Other Start: 04-05-2023 Telephone encounter Magaly Breen her [facility] Start: 03-30-2023 End: 03-30-2023 ambulatory Magaly Ronny Other [facility] Other Start: 03-30-2023 Telephone encounter Magaly Breen her [facility] Start: 03-29-2023 End: 03-29-2023 ambulatory Magaly Jaquezrufina Other [facility] Other Start: 03-29-2023 Office outpatient visit 25 minutes Magaly Jaquezirvingpanfilo [facility] Start: 03-29-2023 End: 03-29-2023 Patient encounter procedure [facility] Work Phone: Start: 02-02-2023 End: 02-02-2023 ambulatory Magaly Jaquezrufina Other [facility] Other Start: 02-02-2023 Telephone encounter Magaly Breen her [facility] Start: 09-28-[address] Cameron Olivares Facility: Start: 06-08-2022 ambulatory Facility:[facility] Start: 03-27-2022 Chart Update Referring Prov ider Unknown [facility] 250 DO Work Phone: Start: 03-27-[address] Cameron Olivares Facility:[id number] Start: 03-22-2022 Patient encounter procedure Referring Provider Unknown [facility] 250 DO Work Phone: Start: 03-22-[address] Cameron Olivares Facility: Start: 02-23-[address] Cameron Olivares Facility:[facility] Start: 01-14-2021 End: 01-15-2021 ambulatory SKYE [...] Treatment Date Care Activity Detail Author Start: 06-21-2023 Patient referral [facility] Work Phone: Start: 08-10-2022 FUV, Provider: Cameron Olivares, Status: Pen, Time: 2:00 PM FUV, Provider: Cameron Olivares, Status: Pen, Time: 2:00 PM [facility] 250 DO Work Phone: Start: 03-27-2022 ECHO, Provider: MEDHAT JASON ULTRASOUND 01,[id number], Status: Pen, Time: 8:45 AM ECHO, Provider: MEDHAT THOMASI ULTRASOUND 01,[id number], Status: Pen, Time: 8:45 AM [facility] 250 DO Work Phone: Patient referral [facility] Work Phone: [facility] Immunizations Immunization Date Immunization Notes Care Provider Yina cooper 01-31-2023 influenza virus vaccine, unspecified formulation [facility] 01-31-2023 influenza, high dose seasonal, preservative-free Magaly Jefferson Other [facility] Other 01-24-2022 influenza, injectabl e, quadrivalent, preservative free Referring Provider Unknown [facility] 250 DO Work Phone: 01-24-2022 Pfizer COVID-19 Vac Bivalent 30 MCG/0.3ML Intramuscular Suspension Referring Provider Unknown [facility] 250 DO Work Phone: 08-23-2021 Moderna COVID-19 Vaccine 100 MCG/0.5ML Intramuscular Suspension Referring Provider Unknown [facility] 250 DO Work Phone: 02-01-2021 Moderna COVID-19 Vaccine 100 MCG/0.5ML Intramuscular Suspension Referring Provider Unknown [facility] 250 DO Work Phone: 01-17-2021 influenza, injectabl e, quadrivalent, preservative free Referring Provider Unknown [facility] 250 DO Work Phone: 06-26-2020 Moderna COVID-19 Vaccine 100 MCG/0.5ML Intramuscular Suspension Referring Provider Unknown [facility] 250 DO Work Phone: 05-29-2020 Moderna COVID-19 Vaccine 100 MCG/0.5ML Intramuscular Suspension Referring Provider Unknown [facility] 250 DO Work Phone: 03-30-2020 influenza, injectabl e, quadrivalent, preservative free Referring Provider Unknown [facility] 250 DO Work Phone: 04-01-2019 influenza, injectabl e, quadrivalent, contains preservative Referring Provider Unknown [facility] 250 DO Work Phone: Payers Date Payer Category Payer Medicaid 2023 Unknown 1957 Self-pay [id number] 1955 Unknown [id number] 2.16.84 [id number] 1955 Unknown [id number] 2.16.84 [id number] 1955 Unknown [id number] 2.16.84 [id number] 1955 Unknown [id number] 2.16.8 [id number] 1955 Unknown [id number] 2.16. [id number] 1955 Unknown [id number] 2.16. [id number] 1955 Unknown [id number] 2.16. [id number] 1955 Unknown [id number] 2.16. [id number] 1955 Unknown [id number] 2.16. [id number] 1955 Unknown [id number] 2.16. [id number] Medicaid [id number] Medicare [id number] 2.1 [id number] Medicare [facility] [id number] Social History Date Type Detail Facility Occasional alcohol use Occasional alcohol use [facility] 250 DO Work Phone: Sex Assigned At Sex Assigned At [facility] Other Start: 1955 Sex Assigned At Male F [facility] Medical Equipment Procedure Code Equipment Code Equipment Origin al Text Equipment Identifier Dates OneTouch Delica Plus [id number] - Blood Sugar Diagnostic (Onetouch Verio Test Strips) strip Start: 05-14-2023 Blood Sugar Diagnostic (Onetouch Verio Test Strips) strip Start: 05-14-2023 End: 05-14-2023 Hospital Discharge instructions 06-21-2023 Note Date & Type Note Facility 06-21-2023 Hospital Discharg e instructions Ambulatory OrdersReferral to Urology Time Frame: 06/21/23, Location: None [facility] Work Phone: Evaluation note 04-05-2023 Note Date & Type Note Facility 04-05-2023 Evaluation note Encounter Date Diagnosis Assessment Notes Mar, Arthritis of right hip (ICD-10 - M16.11) Mar, Sciatica of right side (ICD-10 - M54.31) Mar, Degeneration of intervertebral disc of lumbar region (ICD-10 - M51.36) [employer] Other Evaluation note 03-30-2023 Note Date & Type Note Facility 03-30-2023 Evaluation note Encounter Date Diagnosis Assessment Notes Mar, Type 2 diabetes mellitus with diabetic neuropathic arthropathy, without long-term current use of insulin (ICD-10 - E11.610) [facility] Other Evaluation note 03-29-2023 Note Date & [...] Arthritis of right hip (ICD-10 - M16.11) [facility] Other Evaluation note Note Date & Type Note Facility Evaluation note No Information [facility] Other Evaluation note Note Date & Type Note Facility Evaluation note Diagnosis Onset Date Frequency of micturition acu te Memory changes [facility] Work Phone: History general Narrative - Reported Note Date & Type Note Facility History general Narrative - Reported Type Medical History DM (diabetes mellitus) Medical History Neuropathic pain Medical History HTN (hypertension) Surgical History appendectomy Surgical History eyes Surgical History hand surgery [facility] Other History of Present illness Narrative Note [...] will consider adding diuretics6. Follow-up in 6-month [facility] 250 DO Work Phone: Summary Purpose Family History Unknown Family Member Name Dates Details Family history of diabetes m ellitus: Mother, Father(V18.0, Z83.3) Status:Active Family history of cardiac di sorder: Mother(V17.49, Z82.49) Status:Active Hypertension, benign: Mother Status:Active Unknown Family Member Name Dates Details Family history of diabetes m ellitus: Mother, Father(V18.0, Z83.3) Status:Active Family history of cardiac di sorder: Mother(V17.49, Z82.49) Status:Active Hypertension, benign: Mother Status:Active Relationship Condition Age at Onset Recorded Date/T nick father Unknown Hypertension Unknown Diabetes mellitus Unknown Heart disease Unknown Not Specified Diabetes mellitus Unknown Unknown Advance Directives Advance Directive Response Recorded Date/ Time Advance Directives No April 09, 2023 1:49pm Chief Complaint IDALMIS HATHAWAY is being seen for [place]- HTN. Reason for Referral Reason evaluate Diagnosis 1 Arthritis of right h ip (M16.11) Diagnosis 2 Sciatica of right si de (M54.31) Diagnosis 3 Degeneration of inte rvertebral disc of lumbar region (M51.36) Referral Organization [facility] lindavid Referring Provider First Name Magaly Referring Provider Last Name Ronny Referring Provider Specialty Nurse Annia pandey Referred Organization [facility] Referred Address [address] [place], [place],[address] Referred Provider Specialty Pain Medicin e Referral Priority Routine Chief Complaint and Reason for Visit Chief Complaint Er Follow Up Amb Documentation Amb Documentation urine frequency and memory Reason for Visit Frequency of micturi tion Memory changes Additional Source Comments INFORMATION SOURCE (unrecogn ized section and content) DATE CREATED AUTHOR 01/22/2021 [facility] DATE CREATED AUTHOR AUTHOR'S ORGANIZ ATION 03/29/2022 [facility] DATE CREATED AUTHOR AUTHOR'S ORGANIZ ATION 06/10/2022 [facility] DATE CREATED AUTHOR AUTHOR'S ORGANIZ ATION 09/29/2022 [facility] DATE CREATED AUTHOR AUTHOR'S ORGANIZ ATION 06/09/2023 [facility] (unrecognized sect ion and content) No Status Records FoundNo Status Records FoundNo Status Records FoundNo Status Records Found REASON FOR VISIT (unrecogniz ed section and content) lab resultsER Follow upCGMLi jeffery Jacobson painMedication Care Teams (unrecognized sec tion and content) Team Status: Active Member Role Status Dates Magaly Jefferson APRN [employer]PLOYEE [employer]PERATIONS EXAMINER-C Primary Care Provider Active Team Status: Inactive Member Role Status Dates SIVAKUMAR Gómez Attending Provider Act miguel ángel Start: March 29, 2023 End: March 29, 2023 Team Status: Active Member Role Status Dates Magaly Jefferson APRN NP-C Primary Care Provider Active Start: May [id number] Addie Welsh Attending Provider Active Start: May 02, 2023 Team Status: Active Member Role Status Dates Magaly Jefferson APRN NP-Hang Primary Care Provider Active Start: May [id number] Addie Welsh Attending Provider Active Start: May 14, 2023 Team Status: Inactive Member Role Status Dates Magaly Jefferson APRN EMPLOYEE OPERATIONS EXAMINER-C Primary Care Provider, Attending Provider Active Start: June 21, 2023 End: June 21, 2023 Goals (unrecognized section and content) Goals may be documented in a n alternate section FOR RECORDS PERTAINING TO PATIENTS WHO ARE [...] BE BASED ON THE PRIMARY CLINICAL RECORDS. [facility] [employer] provides no warranty or guarantee of the accuracy or completeness of information in this document.
== END 2023-06-22 10:09 | disposition home or self-care (01) ==
LOC: LAB 10:09
PROVIDERS: PCP Nurse Practitioner Family; Visit Provider Nurse Practitioner Family
DX: R41.3 Other amnesia (principal)
CPT/HCPCS: 36415; 82607

== ENCOUNTER 2023-09-27 09:54 | Outpatient (OUT) | payer MEDICARE, MEDICAID, SELFPAY ==
--- NOTE | 2023-09-27 10:06 | PM.CN ---
Consult Note: HPI Data of Consult Patient: known to practice within the last 3 years Consult date: 05/07/23 Requesting Physician: Ashley Garnica NP Primary Care Provider: SIMON COOPER Consult Narrative Reason for consult: low back, right leg pain Narrative: 67yof who presents for assessment. persistent right low back and leg pain. mri recently completed, significant for multilevel moderate stenosis, as well as facet arthropathy in lower lumbar spine. continues to engage in a series of provider directed home exercises, which he has attempted for >6 weeks, with minimal benefit. has trialed gabapentin, celebrex for >6 weeks. denies adverse med side effects. Previously underwent right L4-5 L5-S1 TFESI with 75% improvement ongoing and right SIJ injection with 90% improvement ongoing. Currently reporting pain 1/10 increasing to 2/10 at its worst. pain increased with activity, lifting, and moving in bed, describes pain as stiffness bruise pain. Noticing improvement in ambulation. MIKAYLA 4%. cc:: CC: Ashley Garnica NP Review of Systems ROS Status of ROS 10 or more systems reviewed and unremarkable except as noted in history and below [facility] Medical History Diabetes ?E11.9 - Type 2 diabetes mellitus without complications (ICD-10) Heart murmur ?R01.1 - Cardiac murmur, unspecified (ICD-10) Hypertension ?I10 - Essential (primary) hypertension (ICD-10) Surgical History S/P ORIF (open reduction internal fixation) fracture ?Z98.890 - Other specified postprocedural states (ICD-10) ?Z87.81 - Personal history of (healed) traumatic fracture (ICD-10) S/P evacuation of hematoma ?Z98.890 - Other specified postprocedural states (ICD-10) H/O eye surgery ?Z98.890 - Other specified postprocedural states (ICD-10) Hx of appendectomy ?Z90.49 - Acquired absence of other specified parts of digestive tract (ICD-10) Meds Home Medications and Allergies Home Medications ?Medication ?Instructions ?Recorded ?Confirmed ?Type amlodipine 5 mg tablet 5 mg PO DAILY 03/26/23 06/04/23 History gabapentin 400 mg capsule 400 mg PO BID 03/26/23 06/04/23 History glipizide 10 mg tablet 10 mg PO BID 03/26/23 06/04/23 History lisinopril 30 mg tablet 30 mg PO DAILY 03/26/23 06/04/23 History metformin 850 mg tablet 850 mg PO TID 03/26/23 06/04/23 History celecoxib 200 mg capsule (Celebrex) 200 mg PO BID PRN pain 04/23/23 06/04/23 History ibuprofen 800 mg tablet (IBU) 800 mg PO TID PRN pain 04/23/23 06/04/23 History methyl salicylate-menthol 30 %-10 1 applic topical BID PRN muscle 04/23/23 06/04/23 History % topical stick (Icy Hot) pain Allergies Allergy/AdvReac Type Severity Reaction Status Date / Time Penicillins Allergy Hives Verified 05/21/23 10:47 Exam Constitutional Documenting provider has reviewed patient's vital signs: yes Common normals: no apparent distress, oriented x3, healthy appearing, alert and well nourished General appearance: cooperative HENMT Common normals: normocephalic, hearing grossly normal bilaterally and moist oral mucous membranes Head and scalp: normocephalic Eye Common normals: PERRL Pupil: PERRL Neck & C-Spine Common normals: full ROM General: normal visual inspection Chest Common normals: inspection of chest normal Respiratory Common normals: normal respiratory effort, no retractions and no use of accessory muscles Back & Pelvis Lumbar spine/lower back: normal to inspection and lumbar ROM normal Sacroiliac joints: SI joints normal Other: negative facet loading sensation intact BLE, strength 5/5 in BLE no pain reproducable on exam Extremity Common normals: normal to inspection and full ROM Neuro Common normals: oriented x3, CN's II-XII intact bilaterally, moves all extremities, no focal motor deficits, no sensory deficits noted and deep tendon reflexes 2+ bilaterally Sensorium/orientation: alert Motor exam: strength 5/5 throughout and no movement abnormalities noted Psych Common normals: mental status grossly normal, thought process normal, cooperative, affect normal, speech normal and activity/motor behavior normal Speech: normal speech Thought process: normal thought process Results Additional Findings Additional findings: If on a controlled substance or opioids, I have checked an [place] report on this patient and there are no aberrancies noted in the prescribing history.??If on a controlled substance or opioid a drug screen was completed and reviewed within the last year, and if there has not been a drug screen completed we ordered one today to monitor higher risk, state monitored pain medication use. As part of providing excellent, safe, comprehensive care, the following was completed at our patient's visit: 1. A medication reconciliation and review to ensure accurate knowledge of current/active medications, including asking our patients to inform us about any [id number] medications or herbal remedies/nutritional supplements/alternative remedies. 2. A review to specifically ensure our patients have had annual screening for screening for depression, screening for tobacco use, and screening for unhealthy alcohol use. For concerning screenings had a discussion with the patient, provided patient education, and recommended follow-up with primary care provider when appropriate. If patient noted with a risk of falling, they received education on strength, gait, and balance training to prevent future risk of falling. Assessment and Plan Assessment and Plan (1) Lumbar stenosis with neurogenic claudication: (2) Sacroiliac joint dysfunction of right side: (3) Lumbar spondylosis: Plan doing very well overall decrease celebrex 100mg BID PRN pain continue gabapentin 400mg BID through prescribing practitioner continue HEP as tolerated f/u 6 months, sooner if needed
== END 2023-09-27 09:55 | disposition home or self-care (01) ==
LOC: PM 09:54
PROVIDERS: PCP Nurse Practitioner Family; Visit Provider Nurse Practitioner
DX: M48.062 Spinal stenosis, lumbar region with neurogenic claudication (principal); M53.3 Sacrococcygeal disorders, not elsewhere classified; M47.816 Spondylosis without myelopathy or radiculopathy, lumbar region
CPT/HCPCS: G0463

== ENCOUNTER 2024-07-14 08:42 | Outpatient (OUT) | payer MEDICAID, MEDICARE, SELFPAY ==
[2024-07-14 09:44] LABS: Creatinine Urine Random 91.69 mg/dL (20.00-300.00); Microalbumin Urine Random <1.3 mg/dL (<=30.0)
[2024-07-14 09:46] LABS: Alanine Aminotransferase 52 U/L (16-63); Albumin Globulin Ratio 1.2; Albumin Level 3.9 g/dL (3.4-5.0); Alkaline Phosphatase 80 U/L (46-116); Anion Gap 12.6; Aspartate Amino Transferase 27 U/L (15-37); BUN Creatinine Ratio 9.5; Bilirubin Total 0.4 mg/dL (0.2-1.0); Calcium 8.9 mg/dL (8.5-10.1); Chloride 101 mmol/L (98-107); Chol HDL Ratio 3.8; Cholesterol 183 mg/dL (<=200); Estimated GFR (African America >60 (>=60 mL/min/1.73m^2); Estimated GFR (Non-African Ame >60 (>=60 mL/min/1.73m^2); Globulin 3.3 g/dL; Glucose 101 mg/dL (74-106); HDL Cholesterol 48 mg/dL (40-60); Potassium 3.6 mmol/L (3.5-5.1); Sodium 139 mmol/L (136-145); Total Protein 7.2 g/dL (6.4-8.2); Triglycerides 135 mg/dL (<=150)
[2024-07-14 10:20] LABS: Basophils Absolute Auto 0.1 10^3/uL (0.0-0.1); Basophils Percent Auto 0.7 % (0.2-2.0); Eosinophils Absolute Auto 0.2 10^3/uL (0.0-0.7); Eosinophils Percent Auto 2.1 % (0.9-7.0); Hematocrit 42.1 % (42.0-54.0); Hemoglobin 14.3 g/dL (14.0-18.0); Immature Granulocytes Abs Auto 0.02 10^3/uL (0.00-0.03); Immature Granulocytes Pct Auto 0.3 % (0.0-0.5); Lymphocytes Percent Auto 25.7 % (20.5-60.0); Mean Corpuscular Hemoglobin 30.4 pg (25.9-34.0); Mean Corpuscular Volume 89.4 fL (80.0-94.0); Mean Platelet Volume 8.7 fL (9.5-13.5); Monocytes Absolute Auto 0.8 10^3/uL (0.3-0.8); Monocytes Percent Auto 9.8 % (1.7-12.0); Neutrophils Absolute Auto 4.7 10^3/uL (1.4-6.5); Neutrophils Percent Auto 61.4 % (43.0-75.0); Platelet Count 411 10^3/uL (150-450); Red Blood Count 4.71 10^6/uL (4.70-6.10); White Blood Count 7.7 10^3/uL (4.0-11.0)
[2024-07-15 05:09] LABS: Vitamin B12 286 pg/mL (232-1245)
== END 2024-07-14 08:43 | disposition home or self-care (01) ==
LOC: LAB 08:46
PROVIDERS: PCP Nurse Practitioner Family; Visit Provider Nurse Practitioner Family
DX: Z12.5 Encounter for screening for malignant neoplasm of prostate (principal); E11.9 Type 2 diabetes mellitus without complications; I10 Essential (primary) hypertension; D51.0 Vitamin B12 deficiency anemia due to intrinsic factor deficiency
CPT/HCPCS: 36415; 80053; 80061; 82043; 82570; 82607; 85025; G0103

== ENCOUNTER 2025-02-17 08:14 | Outpatient (OUT) | payer MEDICARE, MEDICAID, SELFPAY ==
--- OUTSIDE RECORDS SUMMARY | 2025-02-05 05:48 | XMS_ITS | Continuity of Care Document ---
Author Organization [facility] Address [address] [place] [address] Phone Care Team Providers Care Child Care Giver Name Role Phone Magaly Jefferson APRN Primary Care Provider Magaly Jefferson APRN Attending Provider [phone] Care Teams Patient Care Team Team Status: Active Member Role/Relationship Status Dates Magaly Jefferson APRN STAINED GLASS ARTIST-C Primary Care Provider Active Patient Care Team Team Status: Inactive Member Role/Relationship Status Dates Magaly Jefferson APRN STAINED GLASS ARTIST-C Primary Care Provider Active Start: February 052024 End: February 05, 2025Magaly Jefferson APRN STAINED GLASS ARTIST-CAttending ProviderActive Start: February 05, 2025 End: February 05, 2025 Chief Complaint and Reason for Visit Chief Complaint Admit Date Wellness February 05, 2025 9:47am Reason for Visit Admit Date Degeneration of intervertebral disc of l umbar region February 05, 2025 9:47am DM (diabetes mellitus) February 05 9:47am GERD (gastroesophageal reflux disease) N ov2024 9:47am History of smoking February 05, 2025 9:47am Neuropathy February 05, 2025 9:47am Primary hypertension February 05, 2025 9:47am Screening for AAA (abdominal aortic aneu rysm) February 05, 2025 9:47am Screening for colon cancer January 9:47am Seborrheic dermatitis February 05 9:47am Allergies, Adverse Reactions, Alerts Allergen Type Severity Reaction Last Updated Verified Status penicillin G Allergy Unknown tachycardia February 05, 2025 9:5 1am Yes Active Social History Smoking Status Status Start Date End Date Date of Observa tion Never smoked tobacco (finding) November 07, 2023 9:56am Observation Status Observation Response Date of Response Legal Sex [facility] (finding) [facility] 1955 Family History Relationship Condition Age at Onset Recorded Date/T nick father Unknown HypertensionUnknownDiabetes mellitusUnknownHeart diseaseUnknownmotherDiabetes mellitusUnknownDeceasedUnknownHeart diseaseUnknownHypertensionUnknown Problems Active Problems Problem Diagnosis/Recorded Date Onset Date Stat us Sciatica of right side June 20, 2023 3:13pm Unknown Active Screening for prostate cancer February 04, 2024 9:43 am Unknown Active Screening for colon cancer February 05, 2025 10:41am Unknown Active Hordeolum externum (stye) September 17, 2023 10:32am Unkno wn Active Cerumen impaction September 02, 2024 10:35am Unknown Active Welcome to Medicare preventive visit February 03 10:16am Unknown Active DM (diabetes mellitus) May 14, 2023 11:50am Unk nown Active Frequency of micturition June 21, 2023 2:46pm Unknow n Active Seborrheic dermatitis February 05, 2024 9:40am Unkno wn Active Pernicious anemia August 07, 2023 10:39am Unknown Active Rash February 04, 2024 9:55am Unknown A ctive Neuropathy June 20, 2023 3:13pm Unknown Activ e Degeneration of intervertebr al disc of lumbar region June 20, 2023 3:13pm Unknown Active Primary hypertension June 20, 2023 3:13pm Unknown Active History of smoking February 05, 2025 10:40am Unknown Active Memory changes June 21, 2023 2:46pm Unknown Act miguel ángel Screening for AAA (abdominal aortic aneurysm) February 05, 2025 10:40am Unknown Active Neuropathic pain June 20, 2023 3:13pm Unknown A ctive GERD (gastroesophageal reflux disease) December 07, 2023 7:44am Unknown Active HTN (hypertension) June 20, 2023 3:13pm Unknown Active Medications Medication Status Dose Units Route Directions Qty Days Refills S tart Date Stop Date End Date Reason(s) Instructions Adherence Famotidine (Pepcid) 20 mg tablet Discontinued 20 MG PO Twice daily 60 30 0 December 06, 2023 11:00pm January 03, 2024 7:38amGastroesophageal reflux disease Gastro-esophageal reflux disease without esophagitisGabapentin 100 mg capsule Jdrmwatillcm907MXCEBofir arpat07989Gzbganblv 25th, 2024 11:57amNovember 2023 9:33amNeuropathy Polyneuropathy, unspecifiedSemaglutide (Ozempic) 0.25 mg or 0.5 mg (2 mg/3 mL) pen injectorDiscontinued0.25MGSUBCUTevery week1.05138Afelwrlgj2023 11:57amNovember 2023 9:54amDiabetes mellitus Type 2 diabetes mellitus without complicationsfor 4 weeksAmlodipine 5 mg tablet Hnnxsvuzexuy3XMSPHkoft63352Hvqfiaydb 25th, 2024 11:58amNovemb2023 9:54amHypertension Essential (primary) hypertensionFamotidine 20 mg tabletDiscontinued0.ROUTE .QILPBRI85099Gbrapsa 17th, 2024 7:37amNove2023 9:54amGastroesophageal reflux disease Gastro-esophageal reflux disease without esophagitisTAKE 1 TABLET BY MOUTH TWICE A DAYBlood Sugar Diagnostic (Onetouch Verio Test Strips) stripDiscontinued0 .Qlzto7851Sltwgwjj 20th, 2024 10:56amSept2024 6:23amAs directed Famotidine 20 mg hxosisDrdzngvcbngf59IRBVCrrzm evjzk857331Vyelfojy 25th, 2024 7:45amMay 2024 12:29pmGastroesophageal reflux disease Gastro-esophageal reflux disease without esophagitisSemaglutide (Ozempic) 0.25 mg or 0.5 mg (2 mg/3 mL) pen injectorDiscontinued0.5MGSUBCUTevery week3.77692 April 21, 2024 7:54amMarch 2024 11:52amDiabetes mellitus Type 2 diabetes mellitus without complicationsSemaglutide (Ozempic) 0.25 mg or 0.5 mg (2 mg/3 mL) pen injectorDiscontinued0.5MGSUBCUTevery week3.86055Bquil 2024 11:52amMay 2024 12:29pmDiabetes mellitus Type 2 diabetes mellitus without complicationsFluocinolone 0.01 % shampoo Djfycajfkhaq34TICFUMZMFUbufs582181Ousvf 2024 11:00pmApril 2024 2:11pmSeborrheic dermatitis Seborrheic dermatitis, unspecifiedFluocinolone And Shower Cap (Veteran-Smoothe/Fs Scalp Oil) 0.01 % nryNqndsyrhxmtj0WBDYHTLRQELIJXqyjs at .280April 2024 11:00pmApril 2024 2:12pmapply a thin film onto wet scalp and massage in, cover with shower cap, leave in overnight or a minimum of 4 hours before washing off with shampooFluocinolone And Shower Cap (Veteran-Smoothe/Fs Scalp Oil) 0.01 % kyuDctmek6ZGQHWANEQLPDFJfguz at feaferc491.280April 2024 2:12pmapply a thin film onto wet scalp and massage in, cover with shower cap, leave in overnight or a minimum of 4 hours before washing off with shampoo UnknownGlipizide 10 mg xvagntUecirqrtnafv45ZKLVUpolp fuorc119315Mbm2024 6:51amNovember 2024 8:09amMetformin 1,000 mg tablet,ER lc.retention 24 hr Vizrxpbrpygo8724JMXOLlhlf okhyc842419Rou2024 6:51amMay 2024 12:30pm Diabetes mellitus Type 2 diabetes mellitus without complicationsAmlodipine 5 mg tabletDiscontinued 0.ROUTE.BBIDICE238Adum 2024 6:47amNovember 2024 10:30amHypertension Essential (primary) hypertensionTAKE 1 TABLET BY MOUTH DAILYBlood-Glucose Meter (Contour Plus Blue Meter) miscDiscontinued0.Fbaym99Fzbxzu2024 11:00pm November 18, 2024 6:48amDiabetes mellitus Type 2 diabetes mellitus without complicationstest blood sugar BIDBlood Sugar Diagnostic (Contour Plus Test Strip) stripActive0.Trfcd096Mcjqvj 2024 11:00pmtest blood sugar BIDFamotidine 20 mg rxtgpgDnfmha99ZBFPHseif plhcp312197 October 23, 2024 6:17amGastroesophageal reflux disease Gastro-esophageal reflux disease without esophagitisUnknownAtorvastatin 10 mg gmnwucJhdftrsfwkzw68UVWLUysyl xyftuwp43957Krbhfh 12th, 2025 6:40amAugust 2024 8:24amDiabetes mellitus Type 2 diabetes mellitus without complicationsAtorvastatin 10 mg tablet Jkkmtrvuigkk61KCWFBrzbu dasythj20899Hzqzjq 12th, 2025 8:24amNovemb2024 10:30amDiabetes mellitus Type 2 diabetes mellitus without complicationsBlood-Glucose Meter (Contour Plus Blue Meter) miscActive0.Wckww69Kgnzsakgx 2nd, 2025 6:48amDiabetes mellitus Type 2 diabetes mellitus without complicationstest blood sugar BIDBlood Sugar Diagnostic ([employer] Verio Test Strips) stripActive0.Aeags4826Bbcwwerye 9th, 2025 6:23amAs directedMetformin 500 mg tablet,ER lc.retention 24 hrLxzweg749KU POTwice pxfaw406223Vtyxyqeb2024 10:33amDiabetes mellitus Type 2 diabetes mellitus without complicationsUnknownGlipizide 10 mg tablet Qldhae58MHPYAeeip yuwcc591578Tycdojmq2024 8:09amUnknownSemaglutide (Ozempic) 0.25 mg or 0.5 mg (2 mg/3 mL) pen injectorActive0.ROUTE.VLWFKVG8562 January 30, 2025 9:30amDiabetes mellitus Type 2 diabetes mellitus without complicationsINJECT 0.5 MG (0.736 ML) SUBCUTANEOUSLY EVERY WEEK FOR 90 DAYSUnknownMetformin 1,000 mg tablet,ER lc.retention 24 kbCcuzxhuqwosc5891AWDFIaznp kbkre143648Sbc 20th, 2024 11:00pm February 04, 2024 9:54amDiabetes mellitus Type 2 diabetes mellitus without complicationsAmlodipine 5 mg tabletDiscontinued 8EEBSPrjet99838Leh 21st, 2024 9:amSept2023 11:58amHypertension Essential (primary) hypertensionLisinopril 30 mg rhulgvJhkwwnkueyto66HCQTZhwny43 901Ma2023 9:19amNovemb2023 9:54amGabapentin 400 mg capsule Dmjxzmlrnolb205GKBPLashz mqeob022140Xnx 21st, 2024 9:24amSept2023 11:58amGlipizide 10 mg cwojufGkeftxnsnjex94BIKTXsnww rmzky525108Dez 21st, 2024 9:28amNovember 2023 9:54amAmlodipine 5 mg jlmnpsKuiorcioxxsm7HWZLXdqwz June 19, 2023 11:00pmMay 2023 9:28amMethocarbamol 750 mg tmpfqgXtxhzr890 MGPODaily at bedtime as neededApril 2023 11:00pmUnknownNaproxen 500 mg esnjchLakuvt809HYEFMjbmh 12 hours as neededApril 2023 11:00pmUnknown Celecoxib 200 mg qmcpcwqXgcumczldgiv479TGQDEouro daily as neededApril 2023 11:00pm[facility]20[facility] 9:34amSemaglutide (Ozempic) 0.25 mg or 0.5 mg (2 mg/3 mL) pen injectorDiscontinued0.5MGSUBCUTevery week3.54189Nsmyegol 2023 9:50amFebruary 2024 7:54amDiabetes mellitus Type 2 diabetes mellitus without complicationsGlipizide 10 mg tabletDiscontinued 10MGPOTwice tkelm558282Nwdhfjoh 18th, 2024 9:52amMay 2024 6:51amLisinopril 30 mg ijdlobRuhqvckigxst91YCKNVwmus19737Jptypdff 2023 9:52amMay 2024 12:29pmMetformin 1,000 mg tablet,ER lc.retention 24 wyFuyotilamuek3844DPWU Twice yiosn912372Eqtrmagd 18th, 2024 9:52amMay 2024 6:51amDiabetes mellitus Type 2 diabetes mellitus without complicationsAmlodipine 5 mg tabletDiscontinued 6DRLFHmocr56391Tgnecwft 2023 9:52amMay 2024 12:29pmHypertension Essential (primary) hypertensionFamotidine 20 mg dqjuukKcxfwnamvfpy30RIIJKoltp mojas224245Quyohrgw 2023 9:52amNovebanner [facility] 2023 7:45amGastroesophageal reflux disease Gastro-esophageal reflux disease without esophagitisTriamcinolone Acetonide 0.1 % yyjqtArbqqw8NRRKNYVVUEMWAUvsmn rhrfa857Tsdhpqax 2023 12:00amRash Rash and other nonspecific skin eruptionUnknownLisinopril 30 mg tablet Jgfwfbhmkmio17YZKZSanqdPcsagflk 2023 12:00amFebruary 2023 9:35am Lisinopril 30 mg gjumcdBggbgxrotvjo43GFIODzfeo26914Hspwghdh 2023 9:34amMay 2023 9:28amGabapentin 400 mg rokftmrYtnstzpvmxdq255CLGXTlnhf dailyFebruary 2023 12:00amFebruary 2023 11:51amGlipizide 10 mg tabletDiscontinued 10MGPOTwice dailyFebruary 2023 12:00amFebruary 2023 11:51amMetformin 850 mg kkibfeWmifmdexammb973PKOFGuxod times dailyFebruary 2023 12:00amMay 2023 9:17amBlood Sugar Diagnostic (Onetouch Verio Test Strips) strip Discontinued0.RouteFebruary 2023 12:00amFebruary 2023 11:51amAs directedBlood Sugar Diagnostic (Onetouch Verio Test Strips) stripDiscontinued0 .Sfwnv6112Psngjglh 2023 11:47amNovember 2023 10:56amAs directed Gabapentin 400 mg chcoohtWvchzyarwhcv649JNCOUqhen vvfcf247338Gjaebrto 2023 11:47amMay 2023 9:28amGlipizide 10 mg hhvftaTllpwjkhlavk60ELTTBmccd daily 236014Sbaetwam 2023 11:47amMay 2023 9:28amMetformin 850 mg tablet Ncvykdvylige620VNNM4k/Day with vweci097986Rmqqbhxn 2023 12:00amApril 2023 3:17pmDiabetes mellitus Type 2 diabetes mellitus without complicationsSemaglutide (Ozempic) 0.25 mg or 0.5 mg (2 mg/3 mL) pen injectorDiscontinued0.25MGSUBCUTevery week1.95742Hwbjzu2023 11:00pmSept2023 11:58amDiabetes mellitus Type 2 diabetes mellitus without complicationsfor 4 weeksErythromycin 5 mg/gram (0.5 %) rixdiwgvUxozypljvzmc8ILCINILIN-YKBAFipir daily3.550June 2023 11:00pmAugus2023 9:21amHordeolum externum Hordeolum externum unspecified eye, unspecified eyelidLisinopril 30 mg tablet Svaqtvlsadgf28WSYMXuvie59011Eco 12th, 2025 12:27pmFebruary 05, 2025 10:30am Hypertension Essential (primary) hypertensionFamotidine 20 mg nurhkjWzyacvsmhxgv54KBZZDuohn viuhn480002Art2024 12:28pmAu2024 6:17amGastroesophageal reflux disease Gastro-esophageal reflux disease without esophagitisAmlodipine 5 mg tablet Kzmaaqjopbdy7DDGRExzjl37940Feb 12th, 2025 12:28pmJun2024 6:47am Hypertension Essential (primary) hypertensionSemaglutide (Ozempic) 0.25 mg or 0.5 mg (2 mg/3 mL) pen injectorDiscontinued0.5MGSUBCUTevery week9.681197WkoJuly 28, 2024 12:28pm January 30, 2025 9:30amDiabetes mellitus Type 2 diabetes mellitus without complicationsMetformin 500 mg tablet,ER lc.retention 24 mjYrpkyzlgicob404NFDDHdshe bcwvj041064Lsy2024 12:30pm January 19, 2025 10:33amDiabetes mellitus Type 2 diabetes mellitus without complicationsAtorvastatin 10 mg tablet Ayoyvbuichgv14XNRWCccqn jbwfefy50195Wfz2024 11:00pmOctober 28, 2024 6:40amDiabetes mellitus Type 2 diabetes mellitus without complicationsAmlodipine 5 mg tabletActive0 .ROUTE.JUANQFZ176Oafiskah2024 10:28amHypertension Essential (primary) hypertensionTAKE 1 TABLET BY MOUTH DAILYComplies with drug therapyLisinopril 30 mg wadborSubeor38DVSXWospa28670Uhtlfaml 20th, 2025 10:29am Hypertension Essential (primary) hypertensionComplies with drug therapyAtorvastatin 10 mg pzwgjiBvwvjk28XTMMSjncv qqpnciw49433Tkiwdeqv 20th, 2025 10:29amDiabetes mellitus Type 2 diabetes mellitus without complicationsComplies with drug therapy Immunizations Immunization Event Date Not Given Reason Dose Number Assistant Vice President Lot Number Reason(s) Given Vaccine Information Statement (VIS) Detail Administration Location Fluzone TIV High-Dose 65YR+ February 04, 2024 [id number] [facility] CenterFl[facility] High-Dose 65YR+February 05, 2025 [id number] [facility] Centerinfluenza, unspecified formulationJanuary 31neumococcal Conjugate Vaccine, valentFebruary 04, [id number] Relevant Diagnostic Tests and/or Laboratory Data Laboratory Results Test Collection Date/Time Result Date/Time Result Interpretation Reference Range Result Comment Performing Site Bedside Hemoglobin A1c February 05, 2025 10:11am Nov emb2024 10:11am 6.5 % Vital Signs Vital Reading Result Reference Range Collection Date/Time Height 68 [in_i] February 05, 2025 9:02lnBodhln20.46 kgFebruary 05, 2025 9:54amBody Bhnuvnimvdc50.5 [degF]97.6-99.0February 05, 2025 9:54amHeart Rate70 /say43-350 February 05, 2025 9:54amOxygen saturation by Pulse kdhhybsf77 %95-100February 05, 2025 9:54amBP Agunawcw935 mm[Hg]100-140February 05, 2025 9:54amBP Sgfuqrozx45 mm[Hg]60-100February 05, 2025 9:54amBMI (Body Mass Index)27.9 kg/o9UiyjadrlFebruary 05, 2025 9:54am Advance Directives Advance Directive Response Recorded Date/ Time Advance Directives No April 09, 2023 12:49pm Insurance Providers Guarantor Kelechi Sharp Address [address] [id number] Info.Home Phone: Coverage Status Update:2024 Payer Group Member ID Coverage Type Subscriber Relationship to Subscriber Effective Date Expiration Date [employer] Medicaid Id: [id number] Moore Id: [id number] [address] [facility] [address] Home Phone: SelfAnthem [facility] PF Id: [id number] Moore Id: [id number] [address] [facility] [address] Home Phone: SelfUnited [facility] PF [id number] Moore Id: [id number] [address] [facility] [address] Home Phone: Self Encounters Encounter Location(s) Arrival/Admit Date Discharge/Departure Date Discharge/Departure Disposition Provider(s) Departed Physician/ Provider Office Visit -[facility] February 05, 2025 9:47am February 05, 2025 10:47am Discharged to home care or self care (routine discharge) Magaly Jefferson APRN CNP Recent Diagnosis Onset Date Admit Date Degeneration of intervertebr al disc of lumbar region Unknown February 05, 2025 9:47am DM (diabetes mellitus) Unknown February 05, 2025 9:47am GERD (gastroesophageal reflux disease) Unknown February 05, 2025 9:47am History of smoking Unknown January 9:47am Neuropathy Unknown February 05, 9:47am Primary hypertension Unknown February 052024 9:47am Screening for AAA (abdominal aortic aneurysm) Un known February 05, 2025 9:47am Screening for colon cancer Unknown 2024 9:47am Seborrheic dermatitis Unknown January 182024 9:47am Assessments Diagnosis Onset Date Resolution Status Admit Date Degeneration of intervertebral disc of l umbar region acuteFebruary 05, 2025 9:47amDM (diabetes mellitus)acuteFebruary 05, 2025 9:47amGERD (gastroesophageal reflux disease)acuteFebruary 05, 2025 9:47am History of smokingacuteFebruary 05, 2025 9:47amNeuropathyacuteNov2024 9:47amPrimary hypertensionacuteFebruary 05, 2025 9:47amScreening for AAA (abdominal aortic aneurysm)acuteFebruary 05, 2025 9:47amScreening for colon cancer2024 9:47amSeborrheic dermatitisacuteFebruary 05, 2025 9:47am Plan of Treatment Author Magaly Jefferson [facility] ShawAuthoredNov2024 10:40amTo goal. Continue on Amlodipine and Lisinopril Prior to your visit today we reviewed your chart and outlined the testing and treatment needed for your care. We discussed the possible complications of high blood pressure, including increased risk for heart disease, stroke, and kidney disease. Our goal is to keep your blood pressure below 130/85 (an preferably < 120/80) and maintain a healthy weight with a BMI less than 26. We are working together to achieve these goals with the following plan; healthier diet, increased activity and exercise, understanding your medications, and your compliance. To goal. Continue on Glipizide, Ozempic, and metformin A1c 6.5 Added low dose statin Patient is advised to work on healthy diet choices and appropriate servings, weight control, regular exercise as directed, reduced fat intake, and salt avoidance. Patient voiced understanding of this and agrees to this plan. Prior to your visit today we reviewed your chart and outlined the testing and treatment needed for your care. We discussed possible complications of diabetes including risk of heart disease, stroke, and kidney disease. Your goal is to keep your HgA1C below 7 (preferably <6.5) and your blood pressure less than 130/85 (and preferably < 120/80) and maintaining a healthy weight with a BMI less than 26. We are working together to achieve these goals with the following plan; healthier diet, understanding your medications, and your compliance. Barriers to these goals have been discussed. Is now off the medication and doing well, notes that he did not, note a difference in while taking this Following with Pain management, review records as received. Follows with pain management as needed Using prescription oil, and does not feel like it is working-- discussed referral to dermatology -- wants to wait for another month or 2 and then will call if he would like a referral. Continue Famotidine Reflux symptoms remain unchanged. Discussed the importance of meal content. They should avoid overeating and eating meals late in the evening. Take medication as directed and we will continue to monitor. Future Tests Future scheduled test information is unavailable Pending Tests Test Name Ordered Date Scheduled Date US aorta (aaa) screening February 05, 2025 10: 40am Future Visits Future appointment information is unavailable Future Procedures Procedure Name Ordered Date Scheduled Date Disability Placard February 05, 2025 10:37am FREDY Gaines 2024 10:41am Future Medications Future medication information is unavailable Patient Instructions Patient instructions are unavailable Hospital Discharge Instructions Ambulatory Orders* Disability Placard Time Frame: 02/05/25, Location: Determined By Patient
--- NOTE | 2025-02-17 08:16 | US_ITS ---
The [address] [address] Patient Name: IDALMIS HATHAWAY MRN: [id number] date: 1955 Sex: M Assigned Patient Location: US Current Patient Location: Accession/Order Number: [id number] Exam Date: 02/17/2025 08:20 Report Date: 02/17/2025 09:31 At the request of: SIMON COOPER Procedure: US aorta ULTRASOUND OF THE ABDOMINAL AORTA CLINICAL DATA: History of tobacco use. COMPARISON: MRI 04/30/2023 Real-time ultrasound evaluation of the abdominal aorta was performed. No aneurysm is identified. Diameter proximally measures 1.8 cm x 2.1 cm . Through the midsegment, the aorta measures 1.9 cm x 1.7 cm. Distally, the aortic diameter is estimated at 1.8 cm x 1.9 cm. The bifurcation is visualized and the iliac arteries are normal caliber. No periaortic fluid is seen. US/US aorta IMPRESSION: NO AORTIC ANEURYSM. Impression dictated by: Cara Brizuela M.D. 02/17/2025 9:31 AM Dictation Location: [place] [address] Electronically authenticated by: [id number] Y Date: 02/17/2025 09:31
--- OUTSIDE RECORDS SUMMARY | 2025-02-17 08:17 | XMS_ITS | Clinical Summary ---
Author Organization [facility] Address [address] [place] [address] Phone Care Team Providers Care Centrifugal Machine Tender Name Role Phone Unavailable Primary Care Provider Unavailabl e Social History Tobacco UseTypesPacks/DayYears UsedDateSmoking Tobacco: Never AssessedSex and Gender InformationValueDate RecordedSex Assigned at BirthNot on fileLegal Sex Male03/16/2022 6:23 AM ESTGender IdentityNot on fileSexual OrientationNot on file Last Filed Vital Signs Vital SignReadingTime TakenCommentsBlood Qhplaavv210/8203/22/2022 3:39 PM EST Blvcd312303/22/2022 3:09 PM ESTTemperature--Respiratory Rate--Oxygen Saturation-- Inhaled Oxygen Concentration--Xhxypm27.5 kg (195 lb)03/22/2022 3:09 PM ESTHeight 171.5 cm (5' 7.5 )03/22/2022 3:09 PM ESTBody Mass Index30.0903/22/2022 3:09 PM EST Plan of Treatment Health MaintenanceDue DateLast DoneCommentsCT Bdqdyldkmqqh34/05/1956Colonoscopy 1955Colorectal Cancer Jwgdbqijl40/05/1956FIT-DNA (Cologuard)1955FIT 1955Lipid Panel1955 1682Yyomdellmkuzy77/05/1958Yearly Adult Physical 1955MMR Vaccines (1 of 1 - Standard series)1956Hepatitis C Screening 10/22/1975DTaP/Tdap/Td Vaccines (1 - Tdap)10/22/1979PSA Prostate Cancer Zumpgewuu57/05/2008Pneumococcal Vaccine (1 of 1 - PCV)10/22/2007Zoster Vaccines (1 of 2)10/22/2007Influenza Vaccine (#1)5COVID-19 Vaccine (2024- season)2024RSV High Risk: (Elderly (60+) or Population) (1 - 1- dose 75+ series)2032HIB VaccinesAged OutNo longer eligible based on patient's age to complete this topicHPV VaccinesAged OutNo longer eligible based on patient's age to complete this topicHepatitis A VaccinesAged OutNo longer eligible based on patient's age to complete this topicHepatitis B VaccinesAged OutNo longer eligible based on patient's age to complete this topicIPV Vaccines Aged OutNo longer eligible based on patient's age to complete this topic Meningococcal VaccineAged OutNo longer eligible based on patient's age to complete this topicRotavirus VaccinesAged OutNo longer eligible based on patient's age to complete this topic
== END 2025-02-17 08:15 | disposition home or self-care (01) ==
LOC: US 08:14
PROVIDERS: PCP Nurse Practitioner Family; Visit Provider Nurse Practitioner Family
DX: Z13.6 Encounter for screening for cardiovascular disorders (principal); Z87.891 Personal history of nicotine dependence
CPT/HCPCS: 76706